=== PATIENT | female | born 1980 | race African-American/Black ===

== ENCOUNTER 2016-06-12 19:47 | Emergency (ER) | payer OTHER ==
[~2016-06-12] VITALS: Ht 167.6 cm; Wt 86.6 kg
[~2016-06-12 19:47] MED LIST: ACET-704 PO; ALBU25PO2 MC; AMIT75TA PO; ATOR20TA58 PO; AZIT250T6; AZIT250T6 PO; CYCL10TA2 PO; GLIP10TA13 PO; HYDR-2666; HYDR-2762 PO; LEVO137T3 PO; LISI-338 PO; LISI1TAB3 PO; LORA10TA68 PO; METF500T4 PO; NAPR500T PO; PRED20TA PO; PRED50TA; PREG25CA PO; PROAIR HFA8.5 GM INH; PROM5SYR2 PO; PROVENTIL HFA6.7 GM IH; SIMV20TA3 PO; TRAM50TA; [UNRECOGNIZED DRUG - OTHER]
[2016-06-12 20:30] VITALS: BP 151/84
[2016-06-12] MEDS ORDERED: DIPHENHYDRAMINE HCL 25 MG CAPSULE PO ONE (20:30)
[2016-06-12] MEDS ORDERED: PRED50TA PO (20:42)
[2016-06-12] MEDS ORDERED: PROAIR HFA8.5 GM INH (20:42)
--- NOTE | 2016-06-12 20:42 | PHYS DOC ---
Past Medical History Past Medical History: Asthma, Bronchitis, Diabetes-Type II, High Cholesterol, Hypertension, Hypothyroid, Other Additional Past Medical Histor: chronic back pain, sciatica, neuropathy, drug seeking behavior Past Surgical History: Cholecystectomy, Tonsillectomy, Tubal ligation, Other Additional Past Surgical Histo: ear tubes, removal of sweat glands, mole biopsy , neuropathy, ELBOW SX Alcohol Use: Occasionally Drug Use: None Adult General Chief Complaint Chief Complaint: SHORTNESS OF BREATH HPI HPI Patient is a 36 year old female who presents with 3 days of rhinorrhea, nasal congestion, sore throat, dry cough. She also notes 1 day of sternal chest pain with cough and lateral bilateral back pain with cough. She has no resting pain. She states she has general fatigue. She has mild dyspnea. She also has myalgia and chills. She has no measured fever. She denies nausea or vomiting, abdominal pain, diarrhea, dysuria, vaginal bleeding or discharge, leg pain or swelling, hemoptysis. She is taking Tylenol and ibuprofen without complete relief of her symptoms. Review of Systems Review of Systems Constitutional: Denies measured fever [] Eyes: Denies change in visual acuity, redness, or eye pain [] HENT: Has nasal congestion and sore throat [] Respiratory: Has cough and shortness of breath [] Cardiovascular: No additional information not addressed in HPI [] GI: Denies abdominal pain, nausea, vomiting, bloody stools or diarrhea [] : Denies dysuria or hematuria [] Musculoskeletal: Denies joint pain [] Integument: Denies rash or skin lesions [] Neurologic: Denies headache, focal weakness or sensory changes [] Endocrine: Denies polyuria or polydipsia [] Current Medications Current Medications Current Medications Medications (Trade) Dose Ordered Sig/Dwayne Start Time Stop Time Status Last Admin Dose Admin Diphenhydramine HCl (Benadryl) 25 mg 1X ONCE 06/12/16 20:30 06/12/16 20:34 DC 06/12/16 20:48 25 MG Allergies Allergies Allergies Coded Allergies Type Severity Reaction Last Updated Verified Cephalexin Monohydrate Allergy Intermediate 10/17/15 Yes latex Allergy Intermediate 10/17/15 Yes Physical Exam Physical Exam Constitutional: Well developed, well nourished, no acute distress, non-toxic appearance. [] HENT: Normocephalic, atraumatic, bilateral TMs with clear effusion, oropharynx moist, no oral exudates, nose with bilateral hyperemia. [] Eyes: PERRLA, EOMI, conjunctiva normal, no discharge. [] Neck: Normal range of motion, no tenderness, supple, no stridor. [] Cardiovascular:Heart rate regular rhythm [] Lungs & Thorax: Bilateral breath sounds clear to auscultation. Slightly hoarse voice. Mild tenderness to sternal and lateral ribs reproducing pain symptoms, no palpable or visual abnormality of chest wall. [] Abdomen: Bowel sounds normal, soft, no tenderness. [] Skin: Warm, dry, no erythema, no rash. [] Back: No tenderness, no CVA tenderness. [] Extremities: No tenderness, ROM intact, no edema, no palpable cord. [] Neurologic: Alert and oriented X 3, normal motor function, normal sensory function, no focal deficits noted. [] Psychologic: Affect normal, judgement normal, mood normal. [] Current Patient Data Vital Signs Vital Signs Date Time Temp Pulse Resp B/P Pulse Ox O2 Delivery O2 Flow Rate FiO2 06/12/16 20:30 84 151/84 98 Room Air 06/12/16 20:00 99.0 22 99.0 Course & Med Decision Making Course & Med Decision Making She has symptoms of a viral syndrome. Discussed multiple avenues of over-the- counter remedies to assist with symptoms. She requests a dose of Benadryl prior to departure to help her sleep tonight. Return precautions given. She understands and agrees with plan. Dragon Disclaimer Dragon Disclaimer This electronic medical record was generated, in whole or in part, using a voice recognition dictation system. Departure Departure Impression: Primary Impression: Asthma exacerbation Disposition: 01 HOME, SELF-CARE Condition: STABLE Referrals: JASON VARGAS MD (PCP) Patient Instructions: Upper Respiratory Infection, Adult, [id number] Additional Instructions: Take prednisone as prescribed. Use albuterol inhaler as needed for cough. Follow -up with your primary care doctor. Return for any concerns. Scripts Prednisone 50 Mg Tablet1 Tab PO DAILY #5 TAB Prov:Carla SUAREZ MD 06/12/16 Albuterol Sulfate (Proair Hfa Inhaler)8.5 Gm Hfa.aer.ad2 Puff INH Q4HRS PRN SHORTNESS OF BREATH #1 INHALER Prov:Carla SUAREZ MD 06/12/16 Carla SUAREZ MD Jun 12, 2016 20:42
== END 2016-06-12 20:51 | disposition home or self-care (01) ==
LOC: ER 19:47
DX: J45.901 Unspecified asthma with (acute) exacerbation (principal); E03.9 Hypothyroidism, unspecified; E78.00 Pure hypercholesterolemia, unspecified; E11.40 Type 2 diabetes mellitus with diabetic neuropathy, unspecified; I10 Essential (primary) hypertension; G89.29 Other chronic pain; R07.2 Precordial pain; Z76.5 Malingerer [conscious simulation]; Z90.49 Acquired absence of other specified parts of digestive tract; Z98.51 Tubal ligation status; Z90.89 Acquired absence of other organs; Z88.1 Allergy status to other antibiotic agents; Z91.040 Latex allergy status
CPT/HCPCS: 99283; Q0163

== ENCOUNTER 2016-06-21 07:02 | Emergency (ER) | payer OTHER ==
[~2016-06-21] VITALS: Ht 167.6 cm; Wt 86.6 kg
[~2016-06-21 07:02] MED LIST changes: +PRED50TA PO
[2016-06-21 07:16] VITALS: BP 152/88
[2016-06-21] MEDS ORDERED: LIDOCAINE 1% / SOD BICARB 8.4% 20 ML VIAL. IJ ONE (07:30)
--- NOTE | 2016-06-21 07:34 | PHYS DOC ---
Past Medical History Past Medical History: Asthma, Bronchitis, Diabetes-Type II, High Cholesterol, Hypertension, Hypothyroid, Other Additional Past Medical Histor: chronic back pain, sciatica, neuropathy, drug seeking behavior Past Surgical History: Cholecystectomy, Tonsillectomy, Tubal ligation, Other Additional Past Surgical Histo: ear tubes, removal of sweat glands, mole biopsy , neuropathy, ELBOW SX Additional Information: nonsmoker Alcohol Use: Occasionally Drug Use: None Adult General Chief Complaint Chief Complaint: WOUND CHECK HPI HPI Patient is a 36 year old diabetic female who presents with wound dehiscence of right axillary wound. She had a cyst removal performed at [facility] on 05/27/16. She had the sutures removed on 06/17/16. The wound reopened this morning while she was in the shower. She denies any other complications with the wound. Her PCP is Dr. Arambula. Review of Systems Review of Systems Constitutional: Denies fever or chills. [] Integument: Denies rash or skin lesions. Reports right axillary wound dehiscence. Neurologic: Denies focal weakness or sensory changes. [] Current Medications Current Medications Current Medications Medications (Trade) Dose Ordered Sig/Dwayne Start Time Stop Time Status Last Admin Dose Admin Lidocaine/Sodium Bicarbonate (Buffered Lidocaine 1%) 20 ml 1X ONCE 06/21/16 07:30 06/21/16 07:31 DC 06/21/16 07:35 20 ML Allergies Allergies Allergies Coded Allergies Type Severity Reaction Last Updated Verified Cephalexin Monohydrate Allergy Intermediate 10/17/15 Yes latex Allergy Intermediate 10/17/15 Yes Physical Exam Physical Exam Constitutional: Well developed, well nourished, no acute distress, non-toxic appearance. [] HENT: Normocephalic, atraumatic, oropharynx moist. [] Eyes: PERRLA, EOMI, conjunctiva normal, no discharge. [] Skin: Warm, dry, no erythema, no rash. There is a 2cm surgical incision in the fold of the right axilla that has dehisced. There is no surrounding erythema or induration. There is no drainage from the wound. The wound reveals good tissue granulation. Extremities: No tenderness, ROM intact, no edema. Distal pulses equal bilaterally. [] Neurologic: Alert and oriented X 3, normal motor function, normal sensory function, no focal deficits noted. [] Psychologic: Affect normal, judgement normal, mood normal. [] Current Patient Data Vital Signs Vital Signs Date Time Temp Pulse Resp B/P Pulse Ox O2 Delivery O2 Flow Rate FiO2 06/21/16 07:16 98.1 91 18 152/88 97 Room Air 98.1 EKG EKG [] Radiology/Procedures Radiology/Procedures [] Course & Med Decision Making Course & Med Decision Making Pertinent Labs and Imaging studies reviewed. (See chart for details) The patient presents with right axillary surgical wound dehiscence this morning. On exam, there are no signs of infection. Dr. Puga with general surgery was consulted regarding management of the wound. He states that it would be reasonable to close the wound with a few sutures with loose approximation. The wound was closed loosely. She is instructed to follow up with her surgeon at [facility] in 1-2 days. Return precautions were discussed. She verbalizes understanding and agrees with plan. Patient presents with a 2 cm surgical wound dehiscence to the right axilla. The wound was anesthetized with 1% buffered lidocaine. The wound was cleaned using chlorhexidine scrub and copiously irrigated using 250 cc normal saline. Wound edges were loosely approximated using 2 simple interrupted sutures using 4-0 Nylon. The patient tolerated the procedure well and bleeding was controlled. A sterile dressing was applied. Dragon Disclaimer Dragon Disclaimer This electronic medical record was generated, in whole or in part, using a voice recognition dictation system. Departure Departure Impression: Primary Impression: Dehiscence of closure of skin Disposition: 01 HOME, SELF-CARE Condition: STABLE Referrals: JASON ARAMBULA MD (PCP) Patient Instructions: Wound Dehiscence, [id number] Additional Instructions: Your wound was closed loosely with sutures to hold the edges together to promote continued wound healing. Please keep the wound clean and dry. Use soap and water only to clean the wound. Do not use alcohol or peroxide, as these can prolong the wound healing process. Please call your surgeon today to tell them that you were seen here and to schedule a follow up appointment. Return to the emergency department if you have increased pain, redness, swelling , yellow/green drainage from the wound, or other new or concerning symptoms. Problem Qualifiers Primary Impression: Dehiscence of closure of skin Encounter type: initial encounter Qualified Code: T81.31XA - Disruption of external operation (surgical) wound, not elsewhere classified, initial encounter EDIL MARIN Jun 21, 2016 07:34
== END 2016-06-21 08:03 | disposition home or self-care (01) ==
LOC: ER 07:02
DX: T81.31XA Disruption of external operation (surgical) wound, not elsewhere classified, initial encounter (principal); J45.909 Unspecified asthma, uncomplicated; E78.00 Pure hypercholesterolemia, unspecified; I10 Essential (primary) hypertension; E03.9 Hypothyroidism, unspecified; M54.30 Sciatica, unspecified side; E11.42 Type 2 diabetes mellitus with diabetic polyneuropathy; G62.9 Polyneuropathy, unspecified; Z76.5 Malingerer [conscious simulation]; Z90.89 Acquired absence of other organs; Z90.710 Acquired absence of both cervix and uterus; Z98.51 Tubal ligation status; Z88.1 Allergy status to other antibiotic agents; Z91.040 Latex allergy status
CPT/HCPCS: 12001; 99283-25

== ENCOUNTER 2016-07-22 11:07 | Day surgery (SDC) | payer OTHER ==
[~2016-07-22] VITALS: Ht 167.6 cm; Wt 90.7 kg
[~2016-07-22 11:07] MED LIST changes: +ASPI325T4 PO; +CETI10CA PO; +CLINDAMYCIN 600MG PREMIX 50 ML IV PRN; +FENTANYL PF 100 MCG/2 ML VIAL. IV PRN; +GABA-585 PO; +GABA300C8 PO; +INSU100I27; +IV RINGERS,LACTATED 1000ML 1,000 ML IV SCH; +LIDOCAINE 1% 1 ML SYRINGE. ID PRN; +LOSA100T6 PO; +ONDANSETRON PF 4 MG/2 ML VIAL. IV PRN; +PROCHLORPERAZINE 10 MG/2 ML VIAL. IV PRN; +SITA100T PO
[2016-07-22 11:36] LABS: NEG OBC UR NEG; POS OBC UR POS
[2016-07-22 11:50] LABS: BARBITURATES NEG (NEG); BENZODIAZEPINES NEG (NEG); CANNABINOIDS NEG (NEG); COCAINE NEG (NEG); METHADONE NEG (NEG); OPIATES POS (NEG)
[2016-07-22 11:54] LABS: ETHANOL, URINE NEG (NEG)
[2016-07-22 11:55] LABS: PHENCYCLIDINE POS (NEG)
[2016-07-22] MEDS ORDERED: LIDOCAINE 2% 100 MG/5 ML DISP.SYRIN. ONE (12:06)
[2016-07-22] MEDS ORDERED: FAMOTIDINE 20 MG/2 ML VIAL ONE (12:06)
[2016-07-22] MEDS ORDERED: ONDANSETRON PF 4 MG/2 ML VIAL. ONE (12:06)
[2016-07-22] MEDS ORDERED: PROPOFOL 20 ML IV ONE (12:06)
[2016-07-22] MEDS ORDERED: DEXAMETHASONE SOD PHOS 20 MG/5 ML VIAL. ONE (12:06)
[2016-07-22] MEDS ORDERED: FENTANYL PF 100 MCG/2 ML VIAL. ONE ×2 (12:07→13:32)
[2016-07-22] MEDS ORDERED: MIDAZOLAM HCL 2 MG/2 ML VIAL. ONE (12:07)
[2016-07-22] MEDS ORDERED: ROCURONIUM 50 MG/5 ML VIAL. ONE (12:07)
[2016-07-22] MEDS ORDERED: BUPIVACAINE-EPI 0.25%-1:200000 MPF 30 ML VIAL. ONE (12:13)
[2016-07-22 12:27] LABS: BASO # 0.1 x10^3/uL (0.0-0.2); BASO % 1 % (0-3); EOS % 1 % (0-3); HEMATOCRIT 40.2 % (36.0-47.0); HEMOGLOBIN 12.7 g/dL (12.0-15.5); LYMPH # 2.4 x10^3/uL (1.0-4.8); LYMPH % 20 % (24-48); MEAN CORPUSCULAR HEMOGLOBIN 27 pg (25-35); MEAN CORPUSCULAR HGB CONC 32 g/dL (31-37); MEAN CORPUSCULAR VOLUME 85 fL (79-100); MONO % 4 % (0-9); NEUT % 74 % (31-73); PLATELET COUNT 236 x10^3/uL (140-400); RED BLOOD COUNT 4.73 x10^6/uL (3.50-5.40); RED CELL DISTRIBUTION WIDTH 12.9 % (11.5-14.5); WHITE BLOOD COUNT 12.1 x10^3/uL (4.0-11.0)
[2016-07-22 12:31] LABS: CALCIUM 9.8 mg/dL (8.5-10.1); CREATININE 0.8 mg/dL (0.6-1.0); GFR 99.4; POTASSIUM 3.8 mmol/L (3.5-5.1)
[2016-07-22] MEDS ORDERED: GLYCOPYRROLATE 1 MG/5 ML VIAL. ONE (13:40)
[2016-07-22] MEDS ORDERED: NEOSTIGMINE METHYLSULFATE 5 MG/5 ML SYRINGE. ONE (13:40)
[2016-07-22] MEDS ORDERED: SEVOFLURANE 61 TO 120 MINUTES. IH ONE (13:51)
--- NOTE | 2016-07-22 14:03 | PDOC4 ---
Operative Note Operative Note Date of Procedure: 07/22/2016 Pre-Op Diagnosis: closed right ankle lateral malleolus fracturefracture Post-Op Diagnosis: same Procedure: Open treatment with internal fixation lateral malleolus fracture Anesthesia Type: General Surgeon: Siena Liu MD Mixed Crop Farmer: Valery Zamora PA-C EBL: 25 mL Specimens Obtained: none Drains: none Complications: none INDICATIONS FOR PROCEDURE: The patient is a 36 year-old with an ankle fracture. The patient and I discussed the risks and benefits of operative treatment. Surgical fixation likely will give a better long-term outcome. We talked about the risks of the operative fixation such as the risks of bleeding, infection, blood clots, need for hardware removal, stiffness or other potential surgical or anesthetic complications. All of the patient's questions about surgery were answered and they desired to proceed. Written consent was obtained. PROCEDURE IN DETAIL: The patient was identified in the preoperative holding area. The correct ankle was marked by the surgeon. The patient was taken to the operating room, where a general anesthetic was used. Preoperative antibiotics were given intravenously. A timeout procedure was performed. Tourniquet was used on the upper thigh. The limb was prepped sterilely with ChloraPrep solution and sterile drapes were applied with a sterile glove over the toes and heel. An Esmarch bandage was used to exsanguinate the limb and the tourniquet was inflated to 350 mmHg. The direct lateral approach to the distal fibula was used. Sharp dissection was used and Bovie electrocautery was used only as needed for hemostasis. The fracture was identified and exposed. The fracture was gapped open with some traction and with a [place] elevator, and fracture hematoma was cleared with curettes, rongeurs and irrigation. I then had my certified teacher assistant apply longitudinal traction and internal rotation to help reduce the fracture, and a lobster claw bone clamp was used to now reduce the fracture. An interfragmentary lag screw was placed using a threaded hole and a gliding hole, across the fracture site to stabilize it, so that the bone clamp could be removed. I then applied a seven hole plate laterally. I contoured the very tip of the plate to fit the tip of the distal fibula. I applied cortical screws proximally and cancellous screws distally for rigid fixation across the fracture site to stabilize it. Satisfactory reduction and fixation was obtained. I now used the image intensifier to confirm the reduction and fixation. I now stressed the syndesmosis and the medial clear space did not open. This was nicely stable and reduced. The tourniquet was released. Electrocautery was used for hemostasis. Irrigation was used and the incision was closed in layers with 2-0 Vicryl and richy. Local anesthetic with epinephrine was injected into the skin edges. Xeroform and a sterile dressing and a splint were applied. There were no apparent complications. SIENA LIU MD Jul 22, 2016 14:03
[2016-07-22] MEDS ORDERED: HYDR-963 PO ×2 (14:12→14:15)
[2016-07-22] MEDS: FENTANYL PF 100 MCG/2 ML VIAL. IV PRN ×4 (14:23→15:06)
[2016-07-22] MEDS ORDERED: KETOROLAC 30 MG/ML SYRINGE FOR OR. INJ ONE (15:15)
[2016-07-22] MEDS: MORPHINE SULFATE 2 MG/ML DISP.SYRIN. IV PRN ×2 (15:21→15:38)
[2016-07-22] MEDS ORDERED: KETOROLAC TROMETHAMINE 30 MG/ML SYRINGE. ONE (15:23)
[2016-07-22] MEDS: HYDROMORPHONE 2 MG/ML VIAL. IV PRN ×4 (15:43→16:20)
[2016-07-22] MEDS ORDERED: HYDROCODONE/APAP 10/325 TABLET. PO ONE (16:30)
[2016-07-22 16:55] VITALS: BP 121/75
== END 2016-07-22 17:10 | disposition home or self-care (01) ==
LOC: SURG 11:07
PROVIDERS: ATTEND Orthopaedic Surgery
DX: S82.61XA Displaced fracture of lateral malleolus of right fibula, initial encounter for closed fracture (principal); I10 Essential (primary) hypertension; E78.5 Hyperlipidemia, unspecified; E03.9 Hypothyroidism, unspecified; E78.00 Pure hypercholesterolemia, unspecified; F41.9 Anxiety disorder, unspecified; J45.909 Unspecified asthma, uncomplicated; E11.9 Type 2 diabetes mellitus without complications; X58.XXXA Exposure to other specified factors, initial encounter; Y93.9 Activity, unspecified; Y92.9 Unspecified place or not applicable; Z90.49 Acquired absence of other specified parts of digestive tract; Z98.890 Other specified postprocedural states
CPT/HCPCS: 27792; 36415; 80048; 81025; 85027; A4215; C1713; G0481; J1100; J1170; J1885; J2250; J2270; J2405; J2704; J2710; J3010; J3490; J7120; S0028

== ENCOUNTER 2016-09-05 08:47 | Emergency (ER) | payer OTHER ==
[~2016-09-05] VITALS: Ht 170.2 cm; Wt 89.8 kg
[~2016-09-05 08:47] MED LIST changes: -CLINDAMYCIN 600MG PREMIX 50 ML IV PRN; -FENTANYL PF 100 MCG/2 ML VIAL. IV PRN; +HYDR-963 PO; -IV RINGERS,LACTATED 1000ML 1,000 ML IV SCH; -LIDOCAINE 1% 1 ML SYRINGE. ID PRN; -ONDANSETRON PF 4 MG/2 ML VIAL. IV PRN; -PROCHLORPERAZINE 10 MG/2 ML VIAL. IV PRN
--- NOTE | 2016-09-05 09:15 | PHYS DOC ---
Past Medical History Past Medical History: Asthma, Bronchitis, Diabetes-Type II, High Cholesterol, Hypertension, Hypothyroid, Sciatica, Other Additional Past Medical Histor: chronic back pain, neuropathy Past Surgical History: Cholecystectomy, Tonsillectomy, Tubal ligation, Other Additional Past Surgical Histo: ear tubes, removal of sweat glands, ELBOW SX, left ankle ORIF Alcohol Use: None Drug Use: Marijuana Adult General Chief Complaint Chief Complaint: WEAKNESS/GENERALIZED HPI HPI Patient is a 36 year old female who presents with male prosthetic makeup designer for abnormal jerky movements of her face and limbs today. She notes this starting this morning. She was able to eat breakfast and take her morning meds. She denies headache, vision changes, dizziness, numbness, tingling, weakness, n/v, f/c, diarrhea, chest pain, dyspnea, cough, abd pain, dysuria. Review of Systems Review of Systems Constitutional: Denies fever or chills [] Eyes: Denies change in visual acuity, redness, or eye pain [] HENT: Denies nasal congestion or sore throat [] Respiratory: Denies cough or shortness of breath [] Cardiovascular: No additional information not addressed in HPI [] GI: Denies abdominal pain, nausea, vomiting, bloody stools or diarrhea [] : Denies dysuria or hematuria [] Musculoskeletal: Denies back pain or joint pain [] Integument: Denies rash or skin lesions [] Neurologic: Denies headache, focal weakness or sensory changes [] Endocrine: Denies polyuria or polydipsia [] Current Medications Current Medications Current Medications Medications (Trade) Dose Ordered Sig/Dwayne Start Time Stop Time Status Last Admin Dose Admin Sodium Chloride (Iv Sodium Chloride 0.9% 1000ml Bag) 1,000 ml @ 1,000 mls/hr Q1H 09/05/16 09:30 09/05/16 10:29 09/05/16 09:35 1,000 MLS/HR Allergies Allergies Allergies Coded Allergies Type Severity Reaction Last Updated Verified Cephalexin Monohydrate Allergy Intermediate 07/22/16 Yes acetaminophen Allergy Intermediate 07/22/16 No latex Allergy Intermediate 07/22/16 Yes oxycodone Allergy Intermediate 07/22/16 No Physical Exam Physical Exam Constitutional: Well developed, well nourished, no acute distress, non-toxic appearance. [] HENT: Normocephalic, atraumatic, bilateral external ears normal, oropharynx moist, no oral exudates, nose normal. [] Eyes: PERRLA, EOMI, conjunctiva normal, no discharge. [] Neck: Normal range of motion, supple. [] Cardiovascular:Heart rate regular rhythm [] Lungs & Thorax: Bilateral breath sounds clear to auscultation [] Abdomen: Bowel sounds normal, soft, no tenderness. [] Skin: Warm, dry, no erythema, no rash. [] Back: No tenderness, no CVA tenderness. [] Extremities: No tenderness, ROM intact, no edema. [] Neurologic: Alert and oriented X 3, normal motor function, normal sensory function, no focal deficits noted, cranial nerves II through XII intact. Intermittent jerky movements of various parts of the body while maintaining normal mentation. These have appeared to stop while she is not being directly observed for patient care [] Psychologic: Affect normal, judgement normal, mood normal. [] Current Patient Data Vital Signs Vital Signs Date Time Temp Pulse Resp B/P Pulse Ox O2 Delivery O2 Flow Rate FiO2 09/05/16 08:51 98.6 104 18 133/90 96 Room Air 98.6 Lab Values Laboratory Tests Test 09/05/16 09:20 09/05/16 09:22 Urine Collection Type Unknown Urine Color Yellow Urine Clarity Turbid Urine pH 6.5 Urine Specific University <=1.005 Urine Protein Negativemg/dL (NEG-TRACE) Urine Glucose (UA) Negativemg/dL (NEG) Urine Ketones (Stick) Negativemg/dL (NEG) Urine Blood Large (NEG) Urine Nitrite Negative (NEG) Urine Bilirubin Negative (NEG) Urine Urobilinogen Dipstick 0.2mg/dL (0.2 mg/dL) Urine Leukocyte Esterase Trace (NEG) Urine RBC 0/HPF (0-2) Urine WBC Occ/HPF (0-4) Urine Squamous Epithelial Cells Few/LPF Urine Amorphous Sediment Present/HPF Urine Bacteria 0/HPF (0-FEW) Urine Opiates Screen Pos (NEG) Urine Methadone Screen Neg (NEG) Urine Barbiturates Neg (NEG) Urine Phencyclidine Screen Pos (NEG) Urine Amphetamine/Methamphetamine Neg (NEG) Urine Benzodiazepines Screen Neg (NEG) Urine Cocaine Screen Pos (NEG) Urine Cannabinoids Screen Pos (NEG) Urine Ethyl Alcohol Neg (NEG) Sodium Level 142mmol/L (136-145) Potassium Level 3.6mmol/L (3.5-5.1) Chloride Level 102mmol/L (98-107) Carbon Dioxide Level 25mmol/L (21-32) Anion Gap 15 (6-14) H Blood Urea Nitrogen 31mg/dL (7-20) H Creatinine 1.0mg/dL (0.6-1.0) Estimated GFR (Cockcroft-Gault) 76.8 Glucose Level 257mg/dL (70-99) H Calcium Level 10.0mg/dL (8.5-10.1) Laboratory Tests 09/05/16 09:22 Course & Med Decision Making Course & Med Decision Making Pertinent Labs and Imaging studies reviewed. (See chart for details) UDS notable for polysubstance use. Laboratory evaluation otherwise unremarkable. Return precautions given. She understands and agrees with plan. Dragon Disclaimer Dragon Disclaimer This electronic medical record was generated, in whole or in part, using a voice recognition dictation system. Departure Departure Impression: Primary Impression: Muscle spasm Additional Impression: Polysubstance abuse Disposition: 01 HOME, SELF-CARE Condition: STABLE Referrals: JASON VARGAS MD (PCP) Patient Instructions: Alcohol and Drug Addiction, Finding Treatment Additional Instructions: You tested positive for opiates, PCP, cocaine, and marijuana. Stop using drugs. Follow up with your primary care doctor. Return for any concerns. Problem Qualifiers Carla SUAREZ MD Sep 05, 2016 09:15
[2016-09-05] MEDS ORDERED: IV NORMAL SALINE 1000ML BAG 1,000 ML IV SCH (09:30)
[2016-09-05 09:33] LABS: BILIRUBIN,URINE NEGATIVE (NEG); GLUCOSE,URINE NEGATIVE (NEG); NITRITE,URINE NEGATIVE (NEG); PH,URINE 6.5; PROTEIN,URINE NEGATIVE (NEG-TRACE); UROBILINOGEN,URINE 0.2 mg/dL (0.2 mg/dL)
[2016-09-05 09:36] LABS: BARBITURATES NEG (NEG); BENZODIAZEPINES NEG (NEG); CANNABINOIDS POS (NEG); COCAINE POS (NEG); METHADONE NEG (NEG); OPIATES POS (NEG); PHENCYCLIDINE POS (NEG)
[2016-09-05 09:37] LABS: ETHANOL, URINE NEG (NEG)
[2016-09-05 09:56] VITALS: BP 131/77
[2016-09-05 10:00] LABS: GFR 76.8; POTASSIUM 3.6 mmol/L (3.5-5.1)
[2016-09-05 10:07] LABS: BACTERIA,URINE 0 /HPF (0-FEW); RBC,URINE 0 /HPF (0-2); SQUAMOUS EPITHELIAL CELL,UR FEW /LPF; WBC,URINE OCC /HPF (0-4)
== END 2016-09-05 10:37 | disposition home or self-care (01) ==
LOC: ER 08:47
DX: M62.838 Other muscle spasm (principal); F19.10 Other psychoactive substance abuse, uncomplicated; J45.909 Unspecified asthma, uncomplicated; I10 Essential (primary) hypertension; E11.40 Type 2 diabetes mellitus with diabetic neuropathy, unspecified; E78.00 Pure hypercholesterolemia, unspecified; E03.9 Hypothyroidism, unspecified; G89.29 Other chronic pain; Z98.51 Tubal ligation status; Z90.49 Acquired absence of other specified parts of digestive tract; Z90.89 Acquired absence of other organs; F12.10 Cannabis abuse, uncomplicated; Z88.5 Allergy status to narcotic agent; Z88.6 Allergy status to analgesic agent; Z88.1 Allergy status to other antibiotic agents; Z91.040 Latex allergy status
CPT/HCPCS: 36415; 80048; 81001; 82947; 87086; 96360; 99284; G0481; J7030

== ENCOUNTER 2016-12-27 00:34 | Emergency (ER) | payer OTHER ==
[~2016-12-27] VITALS: Ht 167.6 cm; Wt 83.0 kg
[~2016-12-27 00:34] MED LIST changes: -ASPI325T4 PO; +ASPI325T8 PO; -HYDR-2666; +HYDR-2758
[2016-12-27 02:41] LABS: BILIRUBIN,URINE NEGATIVE (NEG); GLUCOSE,URINE >=1000 mg/dL (NEG); NITRITE,URINE NEGATIVE (NEG); PROTEIN,URINE NEGATIVE (NEG-TRACE); UROBILINOGEN,URINE 0.2 mg/dL (0.2 mg/dL)
[2016-12-27 02:49] LABS: BACTERIA,URINE 0 /HPF (0-FEW); RBC,URINE 0 /HPF (0-2); SQUAMOUS EPITHELIAL CELL,UR OCC /LPF; WBC,URINE OCC /HPF (0-4)
[2016-12-27 04:45] VITALS: BP 109/75
[2016-12-27] MEDS ORDERED: CYCLOBENZAPRINE 10 MG TABLET. PO ONE (04:45)
[2016-12-27] MEDS ORDERED: IBUPROFEN 800 MG TABLET. PO ONE (04:45)
[2016-12-27] MEDS ORDERED: NAPR250T2 PO (05:15)
[2016-12-27] MEDS ORDERED: CYCL10TA2 PO (05:15)
--- NOTE | 2016-12-27 07:44 | RAD ---
Indication pain and swelling associated with a fall several days earlier. AP oblique and lateral views of the left foot were obtained. Postoperative changes about the distal fibula are noted. There is generalized soft tissue swelling. No acute bony finding is apparent IMPRESSION: No acute bony finding
--- NOTE | 2016-12-27 07:46 | RAD ---
Indication pain and swelling associated with a fall several days earlier. AP and lateral views of the lumbar spine were obtained as well as a coned view targeted to the lumbosacral junction. Vertebral height alignment and disc spaces appear unremarkable. No acute bony finding is seen. There are no significant degenerative changes apparent on plain films. IMPRESSION: Normal plain films of the lumbar spine
--- NOTE | 2016-12-27 07:48 | RAD ---
Indication pain and swelling associated with a fall. AP oblique and lateral views of the left ankle were obtained. A plate and screws are noted associated with the distal fibula. No acute bony abnormality is seen. Some soft tissue swelling is noted IMPRESSION: No acute bony finding
--- NOTE | 2016-12-27 07:55 | ED.ADGEN ---
Past Medical History Past Medical History: Asthma, Bronchitis, Diabetes-Type II, High Cholesterol, Hypertension, Hypothyroid, Sciatica, Other Additional Past Medical Histor: chronic back pain, neuropathy Past Surgical History: Cholecystectomy, Tonsillectomy, Tubal ligation, Other Additional Past Surgical Histo: ear tubes, removal of sweat glands, ELBOW SX, left ankle ORIF Alcohol Use: None Drug Use: Marijuana Adult General Chief Complaint Chief Complaint: MECHANICAL FALL HPI HPI Patient is a 36 year old woman, history of type 2 diabetes mellitus, hypertension, asthma, anxiety, who presents to the emergency department with complaint of pain in her right buttock, and left ankle and foot after a fall several days ago. Patient states that she had hardware placed in her ankle after a fracture, and is recently finished physical therapy, states that she lost her balance and fell, twisting her ankle and landing on her buttocks several days ago. She states that she has not really taken any medication at home for pain, denies striking her head or her neck, is complaining of left- sided pain, her buttock and lower back, and pain in the left ankle. Patient is ambulating although with some discomfort upon arousing emergency department. Denies any other complaints. Review of Systems Review of Systems Constitutional: Denies fever or chills. [] Eyes: Denies change in visual acuity. [] HENT: Denies nasal congestion or sore throat. [] Respiratory: Denies cough or shortness of breath. [] Cardiovascular: Denies chest pain or edema. [] GI: Denies abdominal pain, nausea, vomiting, bloody stools or diarrhea. [] : Denies dysuria. [] Musculoskeletal: Low back pain, ankle and foot pain on the left side. Integument: Denies rash. [] Neurologic: Denies headache, focal weakness or sensory changes. [] Endocrine: Denies polyuria or polydipsia. [] Lymphatic: Denies swollen glands. [] Psychiatric: Denies depression or anxiety. [] Current Medications Current Medications Current Medications Medications (Trade) Dose Ordered Sig/Dwanye Start Time Stop Time Status Last Admin Dose Admin Cyclobenzaprine HCl (Flexeril) 10 mg 1X ONCE 12/27/16 04:45 12/27/16 04:46 DC 12/27/16 04:43 10 MG Ibuprofen (Motrin) 800 mg 1X ONCE 12/27/16 04:45 12/27/16 04:46 DC 12/27/16 04:43 800 MG Allergies Allergies Allergies Coded Allergies Type Severity Reaction Last Updated Verified Cephalexin Monohydrate Allergy Intermediate 07/22/16 Yes acetaminophen Allergy Intermediate 07/22/16 No latex Allergy Intermediate 07/22/16 Yes oxycodone Allergy Intermediate 07/22/16 No Physical Exam Physical Exam Constitutional: Well developed, well nourished, no acute distress, non-toxic appearance. [] HENT: Normocephalic, atraumatic, bilateral external ears normal, oropharynx moist, no oral exudates, nose normal. [] Eyes: PERRLA, EOMI, conjunctiva normal, no discharge. [] Neck: Normal range of motion, no tenderness, supple, no stridor. [] Cardiovascular:Heart rate regular rhythm, no murmur [] Lungs & Thorax: Bilateral breath sounds clear to auscultation [] Abdomen: Bowel sounds normal, soft, no tenderness, no masses, no pulsatile masses. [] Skin: Warm, dry, no erythema, no rash. [] Back: No tenderness, no CVA tenderness. [] Extremities: No tenderness, no cyanosis, no clubbing, ROM intact, no edema. [] Neurologic: Alert and oriented X 3, normal motor function, normal sensory function, no focal deficits noted. [] Psychologic: Affect normal, judgement normal, mood normal. [] Current Patient Data Vital Signs Vital Signs Date Time Temp Pulse Resp B/P (MAP) Pulse Ox O2 Delivery O2 Flow Rate FiO2 12/27/16 04:45 83 20 109/75 (86) 97 Room Air 12/27/16 01:40 97.7 97.7 Lab Values Laboratory Tests Test 12/27/16 01:41 12/27/16 02:24 12/27/16 02:34 POC Urine HCG, Qualitative Hcg negative (Negative) Hcg negative (Negative) Urine Collection Type Unknown Urine Color Yellow Urine Clarity Clear Urine pH 6.0 Urine Specific [place] 1.025 Urine Protein Negative mg/dL (NEG-TRACE) Urine Glucose (UA) >=1000 mg/dL (NEG) Urine Ketones (Stick) Negative mg/dL (NEG) Urine Blood Negative (NEG) Urine Nitrite Negative (NEG) Urine Bilirubin Negative (NEG) Urine Urobilinogen Dipstick 0.2 mg/dL (0.2 mg/dL) Urine Leukocyte Esterase Negative (NEG) Urine RBC 0 /HPF (0-2) Urine WBC Occ /HPF (0-4) Urine Squamous Epithelial Cells Occ /LPF Urine Bacteria 0 /HPF (0-FEW) EKG EKG Not indicated. [] Radiology/Procedures Radiology/Procedures Left ankle x-ray: Three-view: Patient with hardware in place lateral aspect of the tibia, no evidence of acute fracture, subluxation, soft tissue or other abnormality identified. As interpreted by me. Left foot x-ray: Three-view: Patient with hardware in place as stated, no evidence of acute fracture, subluxation, soft tissue or other abnormality identified. As interpreted by me. Lumbar film: Three-view: No fracture subluxation identified, no soft tissue or bony abnormalities, as interpreted by me. ] Course & Med Decision Making Course & Med Decision Making Pertinent Labs and Imaging studies reviewed. (See chart for details) Patient ambulating with some discomfort, noted to have swelling in the foot and ankle which she states she "isn't sure" if it is worse than usual, although she states she does temporally have swelling air. Due to patient's complaints, and history, imaging of the foot, ankle, and lumbar spine was obtained. No evidence of acute fracture or other acute abnormality was identified. I discussed this with patient, patient was given cyclobenzaprine, naproxen in the ED, also given a prescription for the same, instructed to use medications as directed, and with precautions. To follow up with her orthopedic surgeon if symptoms persist, and return to the ED if new or concerning symptoms develop. Patient discharged home with her family in stable condition with prescriptions and plan as above. Dragon Disclaimer Dragon Disclaimer This electronic medical record was generated, in whole or in part, using a voice recognition dictation system. Departure Impression: Primary Impression: Back pain with radiation Additional Impression: Musculoskeletal pain Disposition: HOME, SELF-CARE Condition: IMPROVED Scripts Naproxen (NAPROXEN) 250 Mg Tablet 250 MG PO BID, #10 Prov: EDIL HUTCHINSON DO 12/27/16 Cyclobenzaprine Hcl (CYCLOBENZAPRINE HCL) 10 Mg Tablet 10 MG PO TID Y for MUSCLE PAIN, #12 TAB Prov: EDIL HUTCHINSON DO 12/27/16 Problem Qualifiers EDIL HUTCHINSON DO Dec 27, 2016:54
== END 2016-12-27 05:56 | disposition home or self-care (01) ==
LOC: ER 00:34
DX: M54.5 Low back pain (principal); M79.1 Myalgia; R22.42 Localized swelling, mass and lump, left lower limb; M25.572 Pain in left ankle and joints of left foot; J45.909 Unspecified asthma, uncomplicated; E78.00 Pure hypercholesterolemia, unspecified; I10 Essential (primary) hypertension; E03.9 Hypothyroidism, unspecified; G89.29 Other chronic pain; E11.40 Type 2 diabetes mellitus with diabetic neuropathy, unspecified; F41.9 Anxiety disorder, unspecified; F12.10 Cannabis abuse, uncomplicated; Z88.1 Allergy status to other antibiotic agents; Z88.6 Allergy status to analgesic agent; Z88.5 Allergy status to narcotic agent; Z91.040 Latex allergy status; Z90.49 Acquired absence of other specified parts of digestive tract
CPT/HCPCS: 72100; 73610; 73630; 81001; 81025; 99285

== ENCOUNTER 2017-02-09 21:47 | Emergency (ER) | payer OTHER ==
[~2017-02-09] VITALS: Ht 167.6 cm; Wt 83.0 kg
[~2017-02-09 21:47] MED LIST changes: +NAPR250T2 PO
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
[2017-02-09] MEDS ORDERED: HYDR-971 PO (22:22)
[2017-02-09] MEDS ORDERED: DIPHTH,PERTUSS(ACELL),TET TOX 0.5 ML DISP.SYRIN. VAX IM ONE (22:30)
[2017-02-09] MEDS ORDERED: HYDROcodone/APAP 5/325MG 1 TAB TABLET PO ONE (23:30)
[2017-02-09 23:45] VITALS: BP 135/92
== END 2017-02-09 23:56 | disposition home or self-care (01) ==
LOC: ER 21:47
DX: T21.21XA Burn of second degree of chest wall, initial encounter (principal); T31.0 Burns involving less than 10% of body surface; E03.9 Hypothyroidism, unspecified; E11.9 Type 2 diabetes mellitus without complications; G89.29 Other chronic pain; I10 Essential (primary) hypertension; J45.909 Unspecified asthma, uncomplicated; E78.00 Pure hypercholesterolemia, unspecified; Z88.5 Allergy status to narcotic agent; Z88.0 Allergy status to penicillin; Z88.6 Allergy status to analgesic agent; Z88.1 Allergy status to other antibiotic agents; Z91.040 Latex allergy status; X12.XXXA Contact with other hot fluids, initial encounter; Y93.89 Activity, other specified; Y92.89 Other specified places as the place of occurrence of the external cause; Y99.8 Other external cause status
CPT/HCPCS: 16000; 90471; 90715; 99283-25; 99284-25

== ENCOUNTER 2017-04-18 07:14 | Day surgery (SDC) | payer OTHER ==
--- NOTE | 2017-04-17 12:20 | PDOC1 ---
History and Physical Date of Admission Date of Admission DATE: 04/18/17 Identification/Chief Complaint Chief Complaint left ankle pain Problems: Source Source: Chart review History of Present Illness History of Present Illness Michelle is a 37 year old female who had left lateral malleolus ORIF on . The fracture is healed and she now has pain due to the hardware. Past Medical History Cardiovascular: HTN, Hyperlipidemia Pulmonary: Asthma CENTRAL NERVOUS SYSTEM: Periperal neuropathy Musculoskeletal: Other (LEFT FOOT/ANKLE: Dorsiflexion to 15, plantarflexion to 20. Inversion to 10, eversion to 5. tenderness to palpation over the medial and lateral joint lines. tenderness to palpation over distal aspect of the plate. no tenderness to palpation over fracture site.) Endocrine: Diabetes, Hypothyroidism Past Surgical History Past Surgical History: Cholecystectomy, Tonsillectomy, Other (left ankle ORIF ) Family History Family History: No Significant Social History Smoke: Quit (2011) ALCOHOL: rare Drugs: None Current Medications Current Medications Active Scripts Active Cyclobenzaprine Hcl 10 Mg Tablet 10 Mg PO TID Reported Loratadine 10 Mg Tablet 1 Tab PO DAILY Levothyroxine Sodium 150 Mcg Tablet 1 Tab PO DAILY Levemir Flextouch (Insulin Detemir) 100 Unit/1 Ml Insuln.pen 33 BID Gabapentin 300 Mg Capsule 1,200 Mg PO TID Aspirin 325 Mg Tablet 1 Tab PO DAILY Januvia (Sitagliptin Phosphate) 100 Mg Tablet 1 Tab PO DAILY Losartan Potassium 100 Mg Tablet 100 Mg PO DAILY Atorvastatin Calcium 20 Mg Tablet 40 Mg PO HS Proventil Hfa Inhaler (Albuterol Sulfate) 6.7 Gm Hfa.aer.ad 2 Puff IH PRN Q4HRS PRN Glipizide 10 Mg Tablet 1 Tab PO BID Amitriptyline Hcl 75 Mg Tablet 75 Mg PO HS Allergies Allergies: Coded Allergies: Cephalexin Monohydrate (Verified Allergy, Intermediate, Itching, 04/14/17) itch acetaminophen (Verified Allergy, Intermediate, 04/14/17) latex (Verified Allergy, Intermediate, Itching, 04/14/17) Latex powder oxycodone (Verified Allergy, Intermediate, 04/14/17) Penicillins (Verified Allergy, Mild, Itching, 04/14/17) Physical Exam General: Alert, Oriented X3, Cooperative, No acute distress HEENT: Atraumatic, EOMI Lungs: Normal air movement Heart: RRR Abdomen: Soft Extremities: No clubbing, No cyanosis, Normal pulses, Other (LEFT FOOT/ANKLE: Dorsiflexion to 15, plantarflexion to 20. Inversion to 10, eversion to 5. tenderness to palpation over the medial and lateral joint lines. tenderness to palpation over distal aspect of the plate. no tenderness to palpation over fracture site.) Skin: No rashes, No breakdown, No significant lesion, Other (Well-healed surgical scar over lateral malleolus ) Neuro: Normal speech, Sensation intact Images Images IMAGING REPORT Left ankle three views, AP, lateral, and oblique Clinical information: Followup ORIF ankle fracture Comparison: 11/03/2016 Findings Bones: Lateral malleolus fracture appears anatomically reduced. The fracture line is no longer well visualized. Plate and screw fixation is seen in the fibula distally. Position is stable compared to prior x-rays, and preliminary healing as suspected. Joints: The ankle mortise is anatomically aligned. Soft tissue: Normal. Impression: Healing ankle fracture, lateral malleolus VTE Prophylaxis Ordered VTE Prophylaxis Devices: Yes VTE Pharmacological Prophylaxi: Yes Assessment/Plan Assessment/Plan Left ankle hardware pain s/p left ankle ORIF 07/22/16. Dr. Liu recommended left ankle hardware removal. Risks of surgery were discussed. All of her questions were answered and she desires to proceed. JONAS PATEL Apr 17, 2017 12:20
[~2017-04-18 07:14] MED LIST changes: +BUPIVACAINE-EPI 0.25%-1:200000 50 ML VIAL. ONE; +CLINDAMYCIN 600MG PREMIX 50 ML IV PRN; +HYDR-971 PO; +HYDROmorphone 2 MG/ML VIAL IV PRN; +IV RINGERS,LACTATED 1000ML 1,000 ML IV SCH; +LEVO150T5 PO; +LIDOCAINE 1% PF 2 ML VIAL. ID PRN; +LORA10TA3 PO; +MORPHINE SULFATE 4 MG/ML DISP.SYRIN. IV PRN; +NAPR-683 PO; -NAPR250T2 PO; +NAPR250T6 PO; -NAPR500T PO; +ONDANSETRON PF 4 MG/2 ML VIAL. IV PRN; +PROCHLORPERAZINE 10 MG/2 ML VIAL. IV PRN; +fentaNYL PF VIAL 100 MCG/2 ML VIAL IV PRN
[2017-04-18 07:34] LABS: NEG OBC UR NEG; POS OBC UR POS
[2017-04-18 07:38] LABS: BARBITURATES NEG (NEG); BENZODIAZEPINES NEG (NEG); CANNABINOIDS NEG (NEG); COCAINE NEG (NEG); METHADONE NEG (NEG); OPIATES POS (NEG); PHENCYCLIDINE POS (NEG)
[2017-04-18] MEDS ORDERED: FAMOTIDINE 20 MG/2 ML VIAL ONE (08:40)
[2017-04-18] MEDS ORDERED: fentaNYL PF VIAL 100 MCG/2 ML VIAL ONE (08:40)
[2017-04-18] MEDS ORDERED: ONDANSETRON PF 4 MG/2 ML VIAL. ONE (08:40)
[2017-04-18] MEDS ORDERED: LIDOCAINE 2% PF Vial for OR 5 ML VIAL. ONE (08:40)
[2017-04-18] MEDS ORDERED: MIDAZOLAM HCL/PF 2 MG/2 ML VIAL. ONE (08:40)
[2017-04-18] MEDS ORDERED: PROPOFOL 20 ML IV ONE (08:40)
[2017-04-18] MEDS ORDERED: DEXAMETHASONE SOD PHOS 20 MG/5 ML VIAL. ONE (08:40)
[2017-04-18] MEDS ORDERED: SEVOFLURANE 31 TO 60 MINUTES. IH ONE (09:40)
--- NOTE | 2017-04-18 09:47 | PDOC4 ---
Operative Note Operative Note Date of Procedure: 04/18/2017 Pre-Op Diagnosis: Mechanical complications retained hardware left ankle Post-Op Diagnosis: Mechanical complications retained hardware left ankle Procedure: Hardware removal left ankle Surgeon(s): Siena Liu MD Per Diem Rn: Valery Zamora PA-C Anesthesia: General EBL: 5 mL Specimens Obtained: none Complications: none Drains: none Tourniquet time: 6 minutes Indications for Procedure: The patient is a 37 year old with mechanical complications of retained hardware. The patient and I discussed the risks, benefits and alternatives of surgery. We discussed the potential risks of refracture, infection, blood clots, continued pain, or other potential surgical or anesthetic competitions. All of her questions about surgery were answered and she desired to proceed. Procedure in Detail: The patient was identified in the preoperative holding area. The correct left ankle was marked by me. The patient was taken to the operating room where general anesthetic was used. The patient was positioned supine on the operating table. A tourniquet was placed on the thigh. Preoperative antibiotics were given intravenously. A timeout procedure was performed. The limb was prepared in sterile fashion with Chloraprep and sterile drapes were applied. An Esmarch bandage was used to exsanguinate the limb and the tourniquet was inflated to 300 mmHg. The scar from prior surgery was used. A lateral incision was made over the plate and screws. Sharp dissection was used and Bovie electrocautery was used only as needed for hemostasis. The plate and all screws were identified, and removed with a screwdriver. Irregularities on the bone from the screw holes were freshened up with a rongeur. The tourniquet was released. Bovie electrocautery was used for hemostasis. Copious irrigation was used. The incision was closed with 3-0 Vicryl and richy by my tax assistant. 20 mLs of 0.5% Marcaine with epinephrine was injected into the skin edges. Xeroform and a sterile dressing were applied. Needle and sponge counts were correct. There were no apparent complications. SIENA LIU MD Apr 18, 2017 09:47
[2017-04-18] MEDS ORDERED: HYDR-2762 PO (10:26)
[2017-04-18] MEDS ORDERED: CALC-77 PO (10:28)
[2017-04-18] MEDS ORDERED: HYDROcodone/APAP 7.5/325MG 1 TAB TABLET PO ONE (10:30)
[2017-04-18 10:36] VITALS: BP 112/73
== END 2017-04-18 11:19 | disposition home or self-care (01) ==
LOC: SURG 07:14
PROVIDERS: ATTEND Orthopaedic Surgery
DX: T84.84XA Pain due to internal orthopedic prosthetic devices, implants and grafts, initial encounter (principal); E11.9 Type 2 diabetes mellitus without complications; E03.9 Hypothyroidism, unspecified; Z88.0 Allergy status to penicillin; Z88.8 Allergy status to other drugs, medicaments and biological substances; Z91.040 Latex allergy status; J45.909 Unspecified asthma, uncomplicated; I10 Essential (primary) hypertension; E78.00 Pure hypercholesterolemia, unspecified; Z79.4 Long term (current) use of insulin; Z88.6 Allergy status to analgesic agent; Z88.5 Allergy status to narcotic agent; X58.XXXA Exposure to other specified factors, initial encounter
CPT/HCPCS: 20680; 80307; 81025; 82962; J1100; J2250; J2405; J2704; J3010; J3490; S0028; G0479; J2001

== ENCOUNTER 2017-10-07 02:35 | Emergency (ER) | payer OTHER ==
[2017-10-07] MEDS: ACETAMINOPHEN 500 MG TABLET PO (05:13)
== END 2017-10-07 05:30 | disposition home or self-care (01) ==
LOC: ER 02:35
DX: E11.622 Type 2 diabetes mellitus with other skin ulcer (principal); L97.128 Non-pressure chronic ulcer of left thigh with other specified severity; E03.9 Hypothyroidism, unspecified; E78.00 Pure hypercholesterolemia, unspecified; J45.909 Unspecified asthma, uncomplicated; I10 Essential (primary) hypertension; F14.10 Cocaine abuse, uncomplicated; Z79.4 Long term (current) use of insulin; Z88.5 Allergy status to narcotic agent; Z88.0 Allergy status to penicillin; Z88.1 Allergy status to other antibiotic agents; Z91.040 Latex allergy status
CPT/HCPCS: 99283

== ENCOUNTER 2017-11-18 03:03 | Emergency (ER) | payer OTHER ==
[2017-11-18] MEDS: CYCLOBENZAPRINE 10 MG TABLET. PO (03:50)
[2017-11-18] MEDS: HYDROcodone/APAP 5/325MG 1 TAB TABLET PO (03:50)
== END 2017-11-18 04:25 | disposition home or self-care (01) ==
LOC: ER 03:03
DX: S30.0XXA Contusion of lower back and pelvis, initial encounter (principal); E78.00 Pure hypercholesterolemia, unspecified; E11.9 Type 2 diabetes mellitus without complications; E03.9 Hypothyroidism, unspecified; I10 Essential (primary) hypertension; Z88.0 Allergy status to penicillin; Z88.5 Allergy status to narcotic agent; Z88.1 Allergy status to other antibiotic agents; Z91.040 Latex allergy status; W01.198A Fall on same level from slipping, tripping and stumbling with subsequent striking against other object, initial encounter; Y99.0 Civilian activity done for income or pay; Y99.8 Other external cause status; Y92.69 Other specified industrial and construction area as the place of occurrence of the external cause
CPT/HCPCS: 99283

== ENCOUNTER 2018-01-13 20:44 | Emergency (ER) | payer OTHER ==
[2018-01-13 21:23] LABS: BILIRUBIN,URINE NEGATIVE (NEG); CLARITY,URINE CLEAR; COLOR,URINE YELLOW; GLUCOSE,URINE NEGATIVE (NEG); NITRITE,URINE NEGATIVE (NEG); PH,URINE 6.5; PROTEIN,URINE NEGATIVE (NEG-TRACE); UROBILINOGEN,URINE 0.2 mg/dL (0.2 mg/dL)
[2018-01-13 21:23] LABS: URINE HCG POC HCG NEGATIVE (Negative)
[2018-01-13] MEDS: KETOROLAC 60 MG/2 ML INJ. IM (21:25)
[2018-01-13] MEDS: HYDROcodone/APAP 5/325MG 1 TAB TABLET PO (21:26)
[2018-01-13 21:35] LABS: SQUAMOUS EPITHELIAL CELL,UR MOD /LPF
[2018-01-13 21:36] LABS: BACTERIA,URINE 0 /HPF (0-FEW); RBC,URINE 0 /HPF (0-2); WBC,URINE OCC /HPF (0-4)
[2018-01-13 21:37] LABS: BARBITURATES NEG (NEG); BENZODIAZEPINES NEG (NEG); CANNABINOIDS POS (NEG); COCAINE NEG (NEG); METHADONE NEG (NEG); OPIATES NEG (NEG); PHENCYCLIDINE POS (NEG)
[2018-01-13 21:38] LABS: AMPHETAMINE/METHAMPHETAMINE NEG (NEG); ETHANOL, URINE NEG (NEG)
== END 2018-01-13 21:59 | disposition home or self-care (01) ==
LOC: ER 21:59
DX: M54.5 Low back pain (principal); E11.9 Type 2 diabetes mellitus without complications; E78.00 Pure hypercholesterolemia, unspecified; I10 Essential (primary) hypertension; E03.9 Hypothyroidism, unspecified; J45.909 Unspecified asthma, uncomplicated; Z88.5 Allergy status to narcotic agent; Z88.0 Allergy status to penicillin; Z91.040 Latex allergy status
CPT/HCPCS: 80307; 81001; 81025; 96372; 99284; J1885

== ENCOUNTER 2018-01-18 00:30 | Emergency (ER) | payer OTHER ==
[~2018-01-18] VITALS: Ht 167.6 cm; Wt 80.7 kg
[~2018-01-18 00:30] MED LIST changes: -BUPIVACAINE-EPI 0.25%-1:200000 50 ML VIAL. ONE; +CALC-77 PO; -CLINDAMYCIN 600MG PREMIX 50 ML IV PRN; +DOXY100T9 PO; -HYDROmorphone 2 MG/ML VIAL IV PRN; -IV RINGERS,LACTATED 1000ML 1,000 ML IV SCH; -LIDOCAINE 1% PF 2 ML VIAL. ID PRN; -METF500T4 PO; +METF500T5 PO; -MORPHINE SULFATE 4 MG/ML DISP.SYRIN. IV PRN; +NAPR-514 PO; -ONDANSETRON PF 4 MG/2 ML VIAL. IV PRN; -PROCHLORPERAZINE 10 MG/2 ML VIAL. IV PRN; -fentaNYL PF VIAL 100 MCG/2 ML VIAL IV PRN
[2018-01-18 00:40] VITALS: BP 136/79
[2018-01-18] MEDS ORDERED: ACETAMINOPHEN 500 MG TABLET PO ONE (01:15)
--- NOTE | 2018-01-18 02:08 | PHYS DOC ---
Past Medical History Past Medical History: Diabetes-Type II, Hypertension, Hyperthyroid, Sciatica Additional Past Medical Histor: ESOPHAGEAL POLYPS, OVARIAN CYST, STOMACH ULCER Past Surgical History: Cholecystectomy, Tonsillectomy, Tubal ligation Additional Past Surgical Histo: LEFT ANKLE SX, BILAT ELBOW SX, ADDENOIDECTOMY, CYST REMOVAL BILAT ARMPITS Alcohol Use: Occasionally Drug Use: Marijuana Social History Narrative: DENIES CURRENT MARIJUANA USE, HAS USED IN PAST Adult General Chief Complaint Chief Complaint: TOE PROBLEM HPI HPI Patient is a 37 year old female with toe pain. She started earlier today pain is moderate nonradiating. Patient denies any suicidal ideation. Current Medications Current Medications Current Medications Medications (Trade) Dose Ordered Sig/Dwayne Start Time Stop Time Status Last Admin Dose Admin Acetaminophen (Tylenol) 1,000 mg 1X ONCE 01/18/18 01:15 01/18/18 01:16 DC 01/18/18 01:27 1,000 MG Allergies Allergies Allergies Coded Allergies Type Severity Reaction Last Updated Verified Cephalexin Monohydrate Allergy Intermediate Itching 04/14/17 Yes latex Allergy Intermediate Itching 04/14/17 Yes oxycodone Allergy Intermediate 04/17/17 Yes Penicillins Allergy Mild Itching 04/14/17 Yes amoxicillin Allergy Unknown 01/18/18 Yes Physical Exam Physical Exam Constitutional: Well developed, well nourished, no acute distress, non-toxic appearance. [] HENT: Normocephalic, atraumatic, bilateral external ears normal, oropharynx moist, no oral exudates, nose normal. [] Eyes: PERRLA, EOMI, conjunctiva normal, no discharge. [] Neck: Normal range of motion, no tenderness, supple, no stridor. [] Extremities: Left toe mild tenderness no swelling or trauma seen Neurologic: Alert and oriented X 3, normal motor function, normal sensory function, no focal deficits noted. [] Psychologic:blunted affect no si. Current Patient Data Vital Signs Vital Signs Date Time Temp Pulse Resp B/P (MAP) Pulse Ox O2 Delivery O2 Flow Rate FiO2 01/18/18 00:40 98.5 103 18 136/79 (98) 97 Room Air 98.5 EKG EKG [] Radiology/Procedures Radiology/Procedures [] Impressions: my read neg xray Course & Med Decision Making Course & Med Decision Making Pertinent Labs and Imaging studies reviewed. (See chart for details) []Toe contusion no signs of any trauma. I offered Tylenol patient requested something stronger. I did not think that this was appropriate she became frustrated. I did advise her to ice rest this toe contusion should heal without difficulty final read of x-ray is pending at this time. Dragon Disclaimer Dragon Disclaimer This electronic medical record was generated, in whole or in part, using a voice recognition dictation system. Departure Departure Impression: Primary Impression: Toe contusion Disposition: 01 HOME, SELF-CARE Condition: STABLE Patient Instructions: Frannie, [id number] DEYSI ALFARO MD Jan 18, 2018 02:08
--- NOTE | 2018-01-18 07:58 | RAD ---
Left great toe, 3 views, 01/18/2018: HISTORY: Toe pain No fracture or dislocation is identified. No significant arthritic change is evident. There is mild generalized subcutaneous edema. IMPRESSION: No significant bony abnormality is detected. Electronically signed by: José Miguel Richardson MD (01/18/2018 7:54 AM) [facility]
== END 2018-01-18 02:12 | disposition home or self-care (01) ==
LOC: ER 00:30
DX: S90.122A Contusion of left lesser toe(s) without damage to nail, initial encounter (principal); Z88.1 Allergy status to other antibiotic agents; Z88.0 Allergy status to penicillin; Z88.5 Allergy status to narcotic agent; Z91.040 Latex allergy status; E11.9 Type 2 diabetes mellitus without complications; I10 Essential (primary) hypertension; X58.XXXA Exposure to other specified factors, initial encounter; Y93.89 Activity, other specified; Y99.8 Other external cause status; Y92.89 Other specified places as the place of occurrence of the external cause
CPT/HCPCS: 73630; 99284

== ENCOUNTER 2018-02-21 23:00 | Emergency (ER) | payer OTHER ==
[~2018-02-21] VITALS: Ht 165.1 cm; Wt 80.7 kg
[~2018-02-21 23:00] MED LIST changes: -LOSA100T6 PO; +LOSA100T7 PO; +METF500T16 PO; -METF500T5 PO
--- NOTE | 2018-02-21 23:42 | PHYS DOC ---
Past Medical History Past Medical History: Diabetes-Type II, Hypertension, Hyperthyroid, Sciatica Additional Past Medical Histor: ESOPHAGEAL POLYPS, OVARIAN CYST, STOMACH ULCER Past Surgical History: Cholecystectomy, Tonsillectomy, Tubal ligation Additional Past Surgical Histo: LEFT ANKLE SX, BILAT ELBOW SX, ADDENOIDECTOMY, CYST REMOVAL BILAT ARMPITS Alcohol Use: Occasionally Drug Use: Marijuana Adult General Chief Complaint Chief Complaint: Congestion HPI HPI Patient is a 37 year old female who presents with head congestion, cough, chest congestion, throat pain x 3 days. Review of Systems Review of Systems Constitutional: Denies fever or chills [] Eyes: Denies change in visual acuity, redness, or eye pain [] HENT: Nasal congestion and sore throat [] Respiratory: Productive cough. Denies shortness of breath [] Cardiovascular: No additional information not addressed in HPI [] GI: bilateral upper abdominal pain, nausea, vomiting. Denies bloody stools or diarrhea [] : Denies dysuria or hematuria [] Musculoskeletal: Denies back pain or joint pain [] Integument: Denies rash or skin lesions [] Neurologic: Denies headache, focal weakness or sensory changes [] All other systems were reviewed and found to be within normal limits, except as documented in this note. Current Medications Current Medications Current Medications Medications (Trade) Dose Ordered Sig/Dwayne Start Time Stop Time Status Last Admin Dose Admin Albuterol/ Ipratropium (Duoneb) 3 ml 1X ONCE 02/21/18 23:45 02/21/18 23:46 DC 02/22/18 00:32 3 ML Dexamethasone (Decadron) 6 mg 1X ONCE 02/21/18 23:45 02/21/18 23:46 DC 02/22/18 00:28 6 MG Allergies Allergies Allergies Coded Allergies Type Severity Reaction Last Updated Verified Cephalexin Monohydrate Allergy Intermediate Itching 04/14/17 Yes latex Allergy Intermediate Itching 04/14/17 Yes oxycodone Allergy Intermediate 04/17/17 Yes Penicillins Allergy Mild Itching 04/14/17 Yes amoxicillin Allergy Unknown 01/18/18 Yes Physical Exam Physical Exam Constitutional: Well developed, well nourished, no acute distress, non-toxic appearance. [] HENT: Frontal sinus tenderness. Normocephalic, atraumatic, bilateral external ears normal, oropharynx moist, no oral exudates, nose congestion and clear drainage. [] Eyes: PERRLA, EOMI, conjunctiva normal, no discharge. [] Neck: Normal range of motion, no tenderness, supple, no stridor. [] Cardiovascular:Heart rate regular rhythm, no murmur [] Lungs & Thorax: Bilateral lower lobe breath sounds have expiratory wheezes to auscultation [] Abdomen: Bowel sounds normal, soft, no tenderness, no masses, no pulsatile masses. [] Skin: Warm, dry, no erythema, no rash. [] Back: No tenderness, no CVA tenderness. [] Extremities: No tenderness, no cyanosis, no clubbing, ROM intact, no edema. [] Neurologic: Alert and oriented X 3, normal motor function, normal sensory function, no focal deficits noted. [] Psychologic: Affect normal, judgement normal, mood normal. [] Current Patient Data Vital Signs Vital Signs Date Time Temp Pulse Resp B/P (MAP) Pulse Ox O2 Delivery O2 Flow Rate FiO2 02/22/18 01:00 89 126/67 (86) 96 Room Air 02/21/18 23:00 98.7 20 98.7 EKG EKG [] Radiology/Procedures Radiology/Procedures Chest x ray Impressions: no acute fiondign and read by Dr Alfaro. Course & Med Decision Making Course & Med Decision Making Patient is a 37 year old female who presents with head congestion, cough, chest congestion, throat pain x 3 days. Upon examination patient has left and right lower lobe expiratory wheezes. Throat is pink without exudates. Patient speaks in full sentences. Patient is coughing up clear mucus. Patient states she has a history of COPD, asthma, bronchitis, upper thyroidism, polyps on her esophagus which she sees a GI doctor for. Patient is allergic to cephalexin, penicillin, amoxicillin, latex, oxycodone. Patient states she does have an albuterol emergency inhaler at home before she's been using. Patient states she also has a nebulizer at home but has not been using any breathing treatments. Patient rates her head pain at a 6 out of 10. She is alert and oriented and neurologically intact. Patient denies nausea, vomiting, diarrhea, dizziness. States that she has upper bilateral quadrant abdominal pain from coughing and heaving from coughing. No extremity edema. Bilateral ears have pearly white tympanic membranes. Patient does have frontal sinus tenderness with palpation. A DuoNeb and dexamethasone is ordered for the patient and the ED. Patient has no acute findings. Patient to be sent home with Tessalon Perles and 4 days of prednisone. Strep is negative. Patient is stable and in no distress. [] Staff Physician Addendum: I was working in the ER during the course of this patient's visit. I was available for consultation as needed, but I was not directly involved in the care of this patient. Dragon Disclaimer Dragon Disclaimer This electronic medical record was generated, in whole or in part, using a voice recognition dictation system. Departure Departure Impression: Primary Impression: URI (upper respiratory infection) Disposition: HOME, SELF-CARE Condition: STABLE Referrals: CARIDAD SKINNER MD (PCP) Patient Instructions: Upper Respiratory Infection, Adult Scripts Prednisone (PREDNISONE) 50 Mg Tablet 1 TAB PO DAILY, #4 TAB Prov: GLENN GARZA APRN 02/22/18 Benzonatate (TESSALON PERLE) 100 Mg Capsule 1 CAP PO TID, #30 CAP Prov: GLENN GARZA APRN 02/22/18 Problem Qualifiers Primary Impression: URI (upper respiratory infection) URI type: unspecified viral URI Qualified Codes: J06.9 - Acute upper respiratory infection, unspecified GLENN GARZA APRN Feb 21, 2018 23:42 DEYSI ALFARO MD Feb 22, 2018 03:04
[2018-02-21] MEDS ORDERED: DEXAMETHASONE 4 MG TABLET PO ONE (23:45)
[2018-02-21] MEDS ORDERED: IPRATRPIUM/ALBUTEROL 0.5/2.5MG 3 ML NEBU. NEB ONE (23:45)
[2018-02-22] MEDS ORDERED: PRED50TA PO (00:08)
[2018-02-22] MEDS ORDERED: BENZ100C PO (00:08)
[2018-02-22 01:00] VITALS: BP 126/67
--- NOTE | 2018-02-22 08:09 | RAD ---
Chest radiograph 02/21/2018 11:41 PM INDICATION: Cough COMPARISON: Chest radiograph March 19, 2016 TECHNIQUE: Frontal and lateral views of the chest are provided. FINDINGS: The cardiomediastinal silhouette is within normal limits. There are no pleural effusions. There is no pulmonary vascular congestion. There is no pneumothorax. The lungs are clear. No significant osseous abnormality is identified. IMPRESSION: No acute cardiopulmonary process. Electronically signed by: Adore Mccabe MD (02/22/2018 8:05 AM) [id number]
== END 2018-02-22 01:25 | disposition home or self-care (01) ==
LOC: ER 23:00
DX: J06.9 Acute upper respiratory infection, unspecified (principal); E11.9 Type 2 diabetes mellitus without complications; I10 Essential (primary) hypertension; E05.90 Thyrotoxicosis, unspecified without thyrotoxic crisis or storm; Z88.0 Allergy status to penicillin; Z88.1 Allergy status to other antibiotic agents; Z88.5 Allergy status to narcotic agent; Z91.040 Latex allergy status
CPT/HCPCS: 71046; 87070; 87880; 94640; 99285; J7620; J8540

== ENCOUNTER 2018-02-28 16:51 | Emergency (ER) | payer OTHER ==
[~2018-02-28] VITALS: Ht 167.6 cm; Wt 84.8 kg
[~2018-02-28 16:51] MED LIST changes: +BENZ100C PO
[2018-02-28] MEDS ORDERED: IPRATRPIUM/ALBUTEROL 0.5/2.5MG 3 ML NEBU. NEB ONE (17:30)
[2018-02-28 18:50] VITALS: BP 123/75
--- NOTE | 2018-02-28 18:51 | PHYS DOC ---
Past Medical History Past Medical History: Diabetes-Type II, Hypertension, Hyperthyroid, Sciatica Additional Past Medical Histor: ESOPHAGEAL POLYPS, OVARIAN CYST, STOMACH ULCER Past Surgical History: Cholecystectomy, Tonsillectomy, Tubal ligation Additional Past Surgical Histo: LEFT ANKLE SX, BILAT ELBOW SX, ADDENOIDECTOMY, CYST REMOVAL BILAT ARMPITS Alcohol Use: Occasionally Drug Use: Marijuana Adult General Chief Complaint Chief Complaint: SHORTNESS OF BREATH HPI HPI Patient is a 37 year old female who presents with cough and reported shortness of breath. The patient states that she was seen and treated at [facility] a few days ago. She was prescribed Zithromax as well as other medications. She states that she took 4 days of the medications and felt like she was not improving so she called the nurse hotline. She states that the nurse told her to stop taking the antibiotics. The patient states that she did not take her last dose and throat in the trash. She then felt like she was worsening so she presented to the emergency department. She does have a nebulizer machine with breathing treatments at home that she states are helping. Review of Systems Review of Systems Constitutional: Denies fever or chills [] Eyes: Denies change in visual acuity, redness, or eye pain [] HENT: Denies nasal congestion or sore throat [] Respiratory: See history of present illness Cardiovascular: No additional information not addressed in HPI [] GI: Denies abdominal pain, nausea, vomiting, bloody stools or diarrhea [] : Denies dysuria or hematuria [] Musculoskeletal: Denies back pain or joint pain [] Integument: Denies rash or skin lesions [] Neurologic: Denies headache, focal weakness or sensory changes [] Endocrine: Denies polyuria or polydipsia [] All other systems were reviewed and found to be within normal limits, except as documented in this note. Current Medications Current Medications Current Medications Medications (Trade) Dose Ordered Sig/Dwayne Start Time Stop Time Status Last Admin Dose Admin Albuterol/ Ipratropium (Duoneb) 3 ml 1X ONCE 02/28/18 17:30 02/28/18 17:31 DC 02/28/18 17:58 3 ML Allergies Allergies Allergies Coded Allergies Type Severity Reaction Last Updated Verified Cephalexin Monohydrate Allergy Intermediate Itching 04/14/17 Yes latex Allergy Intermediate Itching 04/14/17 Yes oxycodone Allergy Intermediate 04/17/17 Yes Penicillins Allergy Mild Itching 04/14/17 Yes amoxicillin Allergy Unknown 01/18/18 Yes Physical Exam Physical Exam Constitutional: Well developed, well nourished, no acute distress, non-toxic appearance. [] HENT: Normocephalic, atraumatic, bilateral external ears normal, oropharynx moist, no oral exudates, nose normal. [] Eyes: PERRLA, EOMI, conjunctiva normal, no discharge. [] Neck: Normal range of motion, no tenderness, supple, no stridor. [] Cardiovascular:Heart rate regular rhythm, no murmur [] Lungs & Thorax: Bilateral breath sounds are slightly decreased at bases with a few scattered rhonchi noted Abdomen: Bowel sounds normal, soft, no tenderness, no masses, no pulsatile masses. [] Skin: Warm, dry, no erythema, no rash. [] Back: No tenderness, no CVA tenderness. [] Extremities: No tenderness, no cyanosis, no clubbing, ROM intact, no edema. [] Neurologic: Alert and oriented X 3, normal motor function, normal sensory function, no focal deficits noted. [] Psychologic: Affect normal, judgement normal, mood normal. [] Current Patient Data Vital Signs Vital Signs Date Time Temp Pulse Resp B/P (MAP) Pulse Ox O2 Delivery O2 Flow Rate FiO2 02/28/18 18:50 123/75 (91) Room Air 02/28/18 17:59 100 02/28/18 16:51 98.5 109 24 98.5 EKG EKG [] Radiology/Procedures Radiology/Procedures [] Course & Med Decision Making Course & Med Decision Making Pertinent Labs and Imaging studies reviewed. (See chart for details) []The patient was given a nebulized treatment in the emergency department which resolved her symptoms. She is being discharged home and is to finish the medications that she was prescribed at [facility]. She is to use her nebulizer machine scheduled at home. She is to follow-up with her primary care provider. She is in agreement with this plan. Dragon Disclaimer Dragon Disclaimer This electronic medical record was generated, in whole or in part, using a voice recognition dictation system. Departure Departure Impression: Primary Impression: Acute bronchitis Disposition: 01 HOME, SELF-CARE Condition: STABLE Referrals: CARIDAD SKINNER MD (PCP) Patient Instructions: Acute Bronchitis Additional Instructions: Finish the medications that you were prescribed at [facility]. Follow-up with your primary care provider in 3 days for recheck or return to the emergency department if worsening. Attending Signature Attending Signature I have reviewed the PA/CORPORATE AFFAIRS MANAGER's note and plan of care. I was available for consultation as needed during the patient's visit in the emergency department. I agree with the clinical impression, plan, and disposition. CORINNE SOLIZ APRN Feb 28, 2018 18:51 MAYNOR MARIN DO Mar 04, 2018 05:50
--- NOTE | 2018-02-28 18:54 | RAD ---
PA and lateral chest radiographs 02/28/2018 Clinical History: Weakness, cough and shortness of breath for one week. PA and lateral digital radiographs of the chest were obtained. Comparison study is dated 03/19/2016. The cardiac and mediastinal silhouettes are within normal limits in size and configuration. No pulmonary infiltrate is seen. No pleural effusion or pneumothorax is noted. The osseous structures are grossly intact. Impression: No radiographic evidence of active cardiopulmonary disease. Electronically signed by: Mark Galvez MD (02/28/2018 6:50 PM) [facility]
== END 2018-02-28 19:04 | disposition home or self-care (01) ==
LOC: ER 16:51
DX: J20.9 Acute bronchitis, unspecified (principal); I10 Essential (primary) hypertension; E11.9 Type 2 diabetes mellitus without complications; E05.90 Thyrotoxicosis, unspecified without thyrotoxic crisis or storm; Z88.0 Allergy status to penicillin; Z88.1 Allergy status to other antibiotic agents; Z88.5 Allergy status to narcotic agent; Z91.040 Latex allergy status
CPT/HCPCS: 71046; 94640; 99284; J7620

== ENCOUNTER 2018-03-04 18:19 | Emergency (ER) | payer OTHER ==
[~2018-03-04] VITALS: Ht 167.6 cm; Wt 84.8 kg
[2018-03-04 18:28] VITALS: BP 149/102
[2018-03-04] MEDS ORDERED: predniSONE 20 MG TABLET PO ONE (18:30)
[2018-03-04] MEDS ORDERED: ALBUTEROL SULFATE 2.5 MG/3 ML NEBU. NEB ONE (18:30)
--- NOTE | 2018-03-04 18:33 | PHYS DOC ---
Past Medical History Past Medical History: Diabetes-Type II, Hypertension, Hyperthyroid, Sciatica Additional Past Medical Histor: ESOPHAGEAL POLYPS, OVARIAN CYST, STOMACH ULCER Past Surgical History: Cholecystectomy, Tonsillectomy, Tubal ligation Additional Past Surgical Histo: LEFT ANKLE SX, BILAT ELBOW SX, ADDENOIDECTOMY, CYST REMOVAL BILAT ARMPITS Alcohol Use: Occasionally Drug Use: Marijuana Adult General Chief Complaint Chief Complaint: ASTHMA HPI HPI Patient is a 37 year old F who presents with cough, congestion and shortness of breath. She has known asthma but states she is not on inhalers at home. Review of Systems Review of Systems Constitutional: Denies fever or chills Eyes: Denies change in visual acuity, redness, or eye pain HENT: Reports nasal congestion, scratchy throat. Respiratory: Reports cough, shortness of breath and wheezing. Cardiovascular: Denies chest pain. GI: Denies abdominal pain, nausea, vomiting, bloody stools or diarrhea Musculoskeletal: Denies back pain or joint pain Integument: Denies rash or skin lesions Neurologic: Denies headache, focal weakness or sensory changes All other systems were reviewed and found to be within normal limits, except as documented in this note. Current Medications Current Medications Current Medications Medications (Trade) Dose Ordered Sig/Dwayne Start Time Stop Time Status Last Admin Dose Admin Albuterol Sulfate (Ventolin Neb Soln) 2.5 mg 1X ONCE 03/04/18 18:30 03/04/18 18:31 DC 03/04/18 18:30 2.5 MG Guaifenesin/ Codeine Phosphate (Robitussin Ac) 5 ml PRN Q6HRS PRN 03/04/18 18:45 03/04/18 18:49 5 ML Prednisone (Prednisone) 60 mg 1X ONCE 03/04/18 18:30 03/04/18 18:31 DC 03/04/18 18:49 60 MG Allergies Allergies Allergies Coded Allergies Type Severity Reaction Last Updated Verified Cephalexin Monohydrate Allergy Intermediate Itching 04/14/17 Yes latex Allergy Intermediate Itching 04/14/17 Yes oxycodone Allergy Intermediate 04/17/17 Yes Penicillins Allergy Mild Itching 04/14/17 Yes amoxicillin Allergy Unknown 01/18/18 Yes Physical Exam Physical Exam Constitutional: Well developed, well nourished, no acute distress, non-toxic appearance. HENT: Normocephalic, atraumatic, bilateral external ears normal, oropharynx moist, no oral exudates, nose normal. Mild erythema of throat. Neck: Normal range of motion, no tenderness, supple, no stridor. Cardiovascular:Heart rate regular rhythm, no murmur Lungs & Thorax: Decreased breath sounds, mild wheezes throughout. Abdomen: Bowel sounds normal, soft, no tenderness, no masses, no pulsatile masses. Skin: Warm, dry, no erythema, no rash. Back: No tenderness, no CVA tenderness. Extremities: No tenderness, no cyanosis, no clubbing, ROM intact, no edema. Neurologic: Alert and oriented X 3, normal motor function, normal sensory function, no focal deficits noted. Psychologic: Somewhat bizarre behavior. Slouched over in chair acting like she can barely breath or talk but then after I left the room and came back in she was sitting up and painting her nails. Current Patient Data Vital Signs Vital Signs Date Time Temp Pulse Resp B/P (MAP) Pulse Ox O2 Delivery O2 Flow Rate FiO2 03/04/18 18:46 96 Room Air 03/04/18 18:28 98.4 107 20 149/102 (118) 98.4 EKG EKG [] Radiology/Procedures Radiology/Procedures CXR: No infiltrates or acute process. Course & Med Decision Making Course & Med Decision Making Pertinent Labs and Imaging studies reviewed. (See chart for details) Pt doing much better after nebulizer treatment and oral medication. Asthma exacerbation most likely from underlying bronchial infection. Green sputum and nasal congestion associated with this. Pt to f/u with her PCP and return if symptoms worsen at anytime. Dragon Disclaimer Dragon Disclaimer This electronic medical record was generated, in whole or in part, using a voice recognition dictation system. Departure Departure Impression: Primary Impression: Asthma exacerbation Additional Impression: Acute bronchitis Disposition: 01 HOME, SELF-CARE Condition: IMPROVED Referrals: CARIDAD SKINNER MD (PCP) Patient Instructions: Acute Bronchitis, [id number], Asthma, Adult, Easy-to- Read Scripts Hydrocodone/Chlorphen Polis (HYDROCODONE-CHLORPHENIRAM SUSP) 5 Ml Marta.er.12h 5 ML PO PRN Q12HR PRN for COUGH for 10 Days, #100 ML 0 Refills Prov: AMAURY CHRISTIAN 03/04/18 Prednisone (PREDNISONE) 20 Mg Tablet 1 TAB PO BID, #10 TAB Prov: AMAURY CHRISTIAN 03/04/18 Albuterol Sulfate (PROAIR HFA INHALER) 8.5 Gm Hfa.aer.ad 1 PUFF INH PRN Q6HRS PRN for SHORTNESS OF BREATH, #1 INHALER 0 Refills Prov: AMAURY CHRISTIAN 03/04/18 Doxycycline Hyclate (DOXYCYCLINE HYCLATE) 100 Mg Capsule 1 CAP PO BID, #20 CAP Prov: AMAURY CHRISTIAN 03/04/18 Problem Qualifiers AMAURY CHRISTIAN Mar 04, 2018 18:33
[2018-03-04] MEDS ORDERED: PRED20TA PO (18:45)
[2018-03-04] MEDS ORDERED: DOXY100C2 PO (18:45)
[2018-03-04] MEDS ORDERED: guaiFENesin/CODEINE 100mg/10mg 5 ML LIQUID PO PRN (18:45)
[2018-03-04] MEDS ORDERED: PROAIR HFA8.5 GM INH (18:45)
[2018-03-04] MEDS ORDERED: HYDR5SUS PO (18:46)
--- NOTE | 2018-03-04 19:36 | RAD ---
Exam performed: 2 views of the chest. Indication: COUGH Date of Service: 03/04/2018 6:28 PM . Comparison : 2 views chest from February 28, 2018 Findings: PA and lateral radiographs of the chest reveal a normal cardiomediastinal contour. The lungs are clear. No pleural fluid is seen. The visualized osseous structures are unremarkable. Impression: No acute cardiopulmonary process seen. Electronically signed by: Daniella Valdes MD (03/04/2018 7:32 PM) [facility]
== END 2018-03-04 19:26 | disposition home or self-care (01) ==
LOC: ER 18:19
DX: J45.901 Unspecified asthma with (acute) exacerbation (principal); E11.9 Type 2 diabetes mellitus without complications; I10 Essential (primary) hypertension; E05.90 Thyrotoxicosis, unspecified without thyrotoxic crisis or storm; Z90.49 Acquired absence of other specified parts of digestive tract; Z90.89 Acquired absence of other organs; Z98.51 Tubal ligation status; Z88.0 Allergy status to penicillin; Z88.1 Allergy status to other antibiotic agents; Z91.040 Latex allergy status
CPT/HCPCS: 71046; 94640; 99284; J7512; J7613

== ENCOUNTER 2018-03-27 22:36 | Emergency (ER) | payer SELFPAY ==
[~2018-03-27] VITALS: Ht 170.2 cm; Wt 86.2 kg
[~2018-03-27 22:36] MED LIST changes: +DOXY100C2 PO; +HYDR5SUS PO
[2018-03-27 22:42] VITALS: BP 138/94
--- NOTE | 2018-03-27 23:17 | PHYS DOC ---
Past Medical History Past Medical History: Diabetes-Type II, Hypertension, Hyperthyroid, Sciatica Additional Past Medical Histor: ESOPHAGEAL POLYPS, OVARIAN CYST, STOMACH ULCER Past Surgical History: Cholecystectomy, Tonsillectomy, Tubal ligation Additional Past Surgical Histo: LEFT ANKLE SX, BILAT ELBOW SX, ADDENOIDECTOMY, CYST REMOVAL BILAT ARMPITS Alcohol Use: Occasionally Drug Use: Marijuana Adult General Chief Complaint Chief Complaint: BACK PAIN - NO INJURY HPI HPI Patient is a 38 year old AA female who presents to the ER today with complaints of left-sided low back pain that radiates to her left hip. Patient also reports right knee pain. States that 3 days ago she accidentally knocked her knee into a piece of furniture and has had anterior right knee pain since then. Patient states that her back pain has started gradually over the last several days. Patient states she has recently been moving after she was evicted from her home and after her grandmother's recent . Patient denies any dysuria, increased urinary frequency, abdominal pain, cellulitis digit, numbness or tingling in her legs, or loss of bowel or bladder control. She states that she has been able to bear weight on her right leg however her right knee hurts when she bends it. Review of Systems Review of Systems Constitutional: Denies fever or chills [] Respiratory: Denies cough or shortness of breath [] Cardiovascular: No additional information not addressed in HPI [] GI: Denies abdominal pain, nausea, vomiting, or diarrhea [] : Denies increased frequency, dysuria or hematuria [] Musculoskeletal: reports left low back pain and r knee pain Integument: Denies rash or skin lesions [] Neurologic: Denies headache, focal weakness or sensory changes [] All other systems were reviewed and found to be within normal limits, except as documented in this note. Current Medications Current Medications Current Medications Medications (Trade) Dose Ordered Sig/Dwayne Start Time Stop Time Status Last Admin Dose Admin Ketorolac Tromethamine (Toradol Im) 30 mg 1X ONCE 03/27/18 23:30 03/27/18 23:31 DC 03/27/18 23:39 30 MG Orphenadrine Citrate (Norflex) 60 mg 1X ONCE 03/27/18 23:30 03/27/18 23:31 DC 03/27/18 23:39 60 MG Allergies Allergies Allergies Coded Allergies Type Severity Reaction Last Updated Verified Cephalexin Monohydrate Allergy Intermediate Itching 04/14/17 Yes latex Allergy Intermediate Itching 04/14/17 Yes oxycodone Allergy Intermediate 04/17/17 Yes Penicillins Allergy Mild Itching 04/14/17 Yes amoxicillin Allergy Unknown 01/18/18 Yes Physical Exam Physical Exam Constitutional: Well developed, well nourished, no acute distress, non-toxic appearance. [] HENT: Normocephalic, atraumatic, bilateral external ears normal, nose normal. [] Eyes: PERRLA, conjunctiva normal, no discharge. [] Neck: Normal range of motion, no stridor. [] Cardiovascular:Heart rate regular rhythm, no murmur [] Lungs & Thorax: Bilateral breath sounds clear to auscultation [] Back: No bony tenderness Extremities: no cyanosis, no clubbing, ROM intact, no edema, R anterior knee tender to palpation. [] Neurologic: Alert and oriented X 3, normal motor function, normal sensory function, no focal deficits noted. [] Psychologic: Affect normal, judgement normal, mood normal. [] Current Patient Data Vital Signs Vital Signs Date Time Temp Pulse Resp B/P (MAP) Pulse Ox O2 Delivery O2 Flow Rate FiO2 03/27/18 22:42 98.1 99 18 138/94 (109) 95 Room Air 98.1 EKG EKG [] Radiology/Procedures Radiology/Procedures Xray of R knee is negative for any acute fracture or dislocation, read by Dr. Lua[] Course & Med Decision Making Course & Med Decision Making Pertinent Labs and Imaging studies reviewed. (See chart for details) Dx: low back pain with sciatica, R knee contusion xray of R knee was negative. Pt was given 60 mg of norflex and 30 mg of toradol IM in the department for back pain. She reports relief of pain after medications. An hugh wrap was applied to the right knee. Pt was encouraged to take tylenol as needed for pain. Prescription written for flexeril. May apply ice or heat to sore areas for relief of pain, activity as tolerated. Follow up with PCP next week if symptoms persist, return to the ER if symptoms worsen. Patient verbalized an understanding of home care, medications, follow-up, and return to ED instructions and was in agreement with the plan of care. [] Dragon Disclaimer Dragon Disclaimer This electronic medical record was generated, in whole or in part, using a voice recognition dictation system. Departure Departure Impression: Primary Impression: Contusion of right knee, initial encounter Additional Impression: Low back pain with left-sided sciatica Disposition: HOME, SELF-CARE Condition: STABLE Referrals: CARIDAD SKINNER MD (PCP) Patient Instructions: Back Pain, Adult, [id number], Contusion, [id number] Additional Instructions: Fill prescription and use as directed. Take tylenol as needed for pain. May apply ice or heat to sore areas for relief of pain, activity as tolerated. Follow up with PCP next week if symptoms persist, return to the ER if symptoms worsen. [] Scripts Cyclobenzaprine Hcl (CYCLOBENZAPRINE HCL) 10 Mg Tablet 1 TAB PO TID PRN for PAIN for 7 Days, #21 TAB 0 Refills Prov: MIRZA PARKER APRN 03/27/18 Problem Qualifiers Additional Impression: Low back pain with left-sided sciatica Chronicity: acute Back pain laterality: left Qualified Codes: M54.42 - Lumbago with sciatica, left side MIRZA PARKER APRN Mar 27, 2018 23:17
[2018-03-27] MEDS ORDERED: ORPHENADRINE CITRATE 60 MG/2 ML VIAL. IM ONE (23:30)
[2018-03-27] MEDS ORDERED: KETOROLAC 60 MG/2 ML INJ. IM ONE (23:30)
[2018-03-27] MEDS ORDERED: CYCL10TA2 PO (23:58)
--- NOTE | 2018-03-28 06:25 | RAD ---
EXAM: 3 views right knee DATE: 03/27/2018 11:28 PM INDICATION: knee pain after hitting it COMPARISON: No Prior FINDINGS: No evidence of acute fracture or dislocation. Joint spaces are preserved without significant degenerative/proliferative change. No knee joint effusion. Mild prepatellar soft tissue swelling. IMPRESSION: 1. No evidence of acute fracture or dislocation. 2. Mild prepatellar soft tissue swelling. Electronically signed by: Onofre Gage MD (03/28/2018 6:21 AM) [facility]
== END 2018-03-28 00:01 | disposition home or self-care (01) ==
LOC: ER 22:36
DX: S80.01XA Contusion of right knee, initial encounter (principal); M54.42 Lumbago with sciatica, left side; E11.9 Type 2 diabetes mellitus without complications; I10 Essential (primary) hypertension; E05.90 Thyrotoxicosis, unspecified without thyrotoxic crisis or storm; Z90.49 Acquired absence of other specified parts of digestive tract; Z90.89 Acquired absence of other organs; Z98.51 Tubal ligation status; Z88.0 Allergy status to penicillin; Z88.1 Allergy status to other antibiotic agents; Z88.5 Allergy status to narcotic agent; Z91.040 Latex allergy status; W22.03XA Walked into furniture, initial encounter; Y93.89 Activity, other specified; Y92.89 Other specified places as the place of occurrence of the external cause; Y99.8 Other external cause status
CPT/HCPCS: 73562; 96372; 99284; J1885; J2360

== ENCOUNTER 2018-05-21 22:32 | Emergency (ER) | payer SELFPAY ==
[~2018-05-21] VITALS: Ht 167.6 cm; Wt 86.2 kg
[~2018-05-21 22:32] MED LIST changes: +GABA300C18 PO; -GABA300C8 PO; -HYDR-2758; +HYDR-2761; -HYDR-2762 PO; +HYDR-2765 PO; +HYDR-3135 PO; +HYDR-3164 PO; -HYDR-963 PO; -HYDR-971 PO; +LOSA100T14 PO; -LOSA100T7 PO
[2018-05-21 22:42] VITALS: BP 141/107
[2018-05-21] MEDS ORDERED: HYDROcodone/APAP 5/325MG 1 TAB TABLET PO ONE (23:00)
[2018-05-21] MEDS ORDERED: MORPHINE SULFATE 4 MG/ML VIAL. IM ONE (23:00)
[2018-05-21] MEDS ORDERED: DICL50TA4 PO (23:12)
[2018-05-21] MEDS ORDERED: METH4TAB2 PO (23:12)
[2018-05-21] MEDS ORDERED: CYCL10TA2 PO (23:12)
--- NOTE | 2018-05-21 23:12 | PHYS DOC ---
Past Medical History Past Medical History: Diabetes-Type II, Hypertension, Hyperthyroid, Sciatica Additional Past Medical Histor: ESOPHAGEAL POLYPS, OVARIAN CYST, STOMACH ULCER Past Surgical History: Cholecystectomy, Tonsillectomy, Tubal ligation Additional Past Surgical Histo: LEFT ANKLE SX, BILAT ELBOW SX, ADDENOIDECTOMY, CYST REMOVAL BILAT ARMPITS Alcohol Use: Occasionally Drug Use: Marijuana Adult General Chief Complaint Chief Complaint: BACK PAIN - NO INJURY HPI HPI Patient is a 38 year old female who presents complaining of moderate mid lower and upper back pain that has been going on since November 2017 after she fell at work. Patient states she has been following up with workman comp but she currently does not have any medical insurance. She states she was referred to an orthopedic doctor but she cannot be seen because she does not have any way to pay for it. Patient denies any pain radiating to bilateral lower extremities. Denies any loss of bowel bladder function. She is requesting morphine by mouth and injection. Informed patient I'll be glad to give her morphine IM and one hydrocodone. She agreed to eat. Review of Systems Review of Systems Constitutional: Denies fever or chills [] Musculoskeletal: Reports neck pain, mid and low back pain Integument: Denies rash or skin lesions [] Neurologic: Denies headache, focal weakness or sensory changes [] All other systems were reviewed and found to be within normal limits, except as documented in this note. Current Medications Current Medications Current Medications Medications (Trade) Dose Ordered Sig/Dwayne Start Time Stop Time Status Last Admin Dose Admin Acetaminophen/ Hydrocodone Bitart (Lortab 5/325) 1 tab 1X ONCE 05/21/18 23:00 05/21/18 23:01 DC 05/21/18 22:59 1 TAB Cyclobenzaprine HCl (Flexeril) 10 mg 1X ONCE 05/21/18 23:30 05/21/18 23:31 05/21/18 23:00 10 MG Morphine Sulfate (Morphine Sulfate) 4 mg 1X ONCE 05/21/18 23:00 05/21/18 23:01 DC 05/21/18 22:58 4 MG Allergies Allergies Allergies Coded Allergies Type Severity Reaction Last Updated Verified Cephalexin Monohydrate Allergy Intermediate Itching 04/14/17 Yes amoxicillin Allergy Intermediate 05/21/18 Yes latex Allergy Intermediate Itching 04/14/17 Yes oxycodone Allergy Intermediate 04/17/17 Yes Penicillins Allergy Mild Itching 04/14/17 Yes Physical Exam Physical Exam Constitutional: Well developed, well nourished, no acute distress, non-toxic appearance. [] Skin: Warm, dry, no erythema, no rash. [] Back: No tenderness, no CVA tenderness. [] Extremities: No tenderness, no cyanosis, no clubbing, ROM intact, no edema. [] Neurologic: Alert and oriented X 3, normal motor function, normal sensory function, no focal deficits noted. [] Psychologic: Affect normal, judgement normal, mood normal. [] Current Patient Data Vital Signs Vital Signs Date Time Temp Pulse Resp B/P (MAP) Pulse Ox O2 Delivery O2 Flow Rate FiO2 05/21/18 22:59 99 Room Air 05/21/18 22:34 97.8 99 20 141/107 (118) 97.8 EKG EKG [] Radiology/Procedures Radiology/Procedures [] Course & Med Decision Making Course & Med Decision Making Pertinent Labs and Imaging studies reviewed. (See chart for details) This is a 38-year-old female patient presented to the ED today with chronic back pain. Requested patient to follow-up with orthopedic doctor as requested by the workman comp. Discharged with cyclobenzaprine, Medrol Dosepak and diclofenac. Provided orthopedic doctor for follow-up. Dragon Disclaimer Dragon Disclaimer This electronic medical record was generated, in whole or in part, using a voice recognition dictation system. Departure Departure Impression: Primary Impression: Chronic back pain Disposition: 01 HOME, SELF-CARE Condition: STABLE Referrals: NO PCP (PCP) SIENA MASTERS MD follow up in one week Patient Instructions: Back Exercises, [id number], Back Pain, Adult Additional Instructions: You were evaluated in the emergency room for chronic back pain. Follow-up with orthopedic doctor provided as soon as possible. Also establish care with a primary care doctor and follow-up for hypertension. Scripts Diclofenac Sodium (DICLOFENAC SODIUM) 50 Mg Tablet.dr 1 TAB PO BID, #30 TAB 0 Refills Prov: MUTUNGA,ZANA SCADA TECHNICIAN 05/21/18 Methylprednisolone (MEDROL) 4 Mg Tab.ds.pk 1 PKG PO UD, #1 PKG Prov: ZANA SAPP SCADA TECHNICIAN 05/21/18 Cyclobenzaprine Hcl (CYCLOBENZAPRINE HCL) 10 Mg Tablet 1 TAB PO TID, #30 TAB Prov: ZANA SAPP APRN 05/21/18 Problem Qualifiers Primary Impression: Chronic back pain Back pain location: low back pain Back pain laterality: bilateral Sciatica presence: without sciatica Qualified Codes: M54.5 - Low back pain; G89.29 - Other chronic pain MIMIANGÉLICAZANA Perez APRN May 21, 2018 23:12
[2018-05-21] MEDS ORDERED: CYCLOBENZAPRINE 10 MG TABLET. PO ONE (23:30)
== END 2018-05-21 23:32 | disposition home or self-care (01) ==
LOC: ER 22:32
DX: G89.29 Other chronic pain (principal); M54.5 Low back pain; M54.2 Cervicalgia; M54.6 Pain in thoracic spine; E11.9 Type 2 diabetes mellitus without complications; I10 Essential (primary) hypertension; E05.90 Thyrotoxicosis, unspecified without thyrotoxic crisis or storm; Z90.49 Acquired absence of other specified parts of digestive tract; Z90.89 Acquired absence of other organs; Z98.51 Tubal ligation status; Z88.0 Allergy status to penicillin; Z88.1 Allergy status to other antibiotic agents; Z88.5 Allergy status to narcotic agent; Z91.040 Latex allergy status
CPT/HCPCS: 96372; 99283; J2270

== ENCOUNTER 2018-11-22 10:49 | Emergency (ER) | payer SELFPAY ==
[~2018-11-22] VITALS: Ht 170.2 cm; Wt 86.2 kg
[~2018-11-22 10:49] MED LIST changes: +ALBU2.5V8 IH; +ALBU2.5V8 INH; +DICL50TA4 PO; +METH4TAB2 PO; -PROAIR HFA8.5 GM INH; -PROVENTIL HFA6.7 GM IH
[2018-11-22 11:01] VITALS: BP 134/94
--- NOTE | 2018-11-22 11:06 | PHYS DOC ---
Past Medical History Past Medical History: Diabetes-Type II, Hypertension, Hyperthyroid, Sciatica Additional Past Medical Histor: ESOPHAGEAL POLYPS, OVARIAN CYST, STOMACH ULCER Past Surgical History: Cholecystectomy, Tonsillectomy, Tubal ligation Additional Past Surgical Histo: LEFT ANKLE SX, BILAT ELBOW SX, ADDENOIDECTOMY, CYST REMOVAL BILAT ARMPITS Alcohol Use: Occasionally Drug Use: Marijuana Adult General Chief Complaint Chief Complaint: COUGH HPI HPI Patient is a 38 year old female with a history of hypertension, asthma, diabetes type 2, who presents to the ED today complaining of productive cough, shortness of breath, wheezing, intermittently for 6 weeks. Patient states she has followed up with the PCP who encouraged her to take bwid-fyt-pscnspk remedies and gave her an albuterol inhaler. Patient states symptoms are not improving. Denies any current history of smoking but states she is a former smoker. PCP Dr. Llamas Review of Systems Review of Systems Constitutional: Denies fever or chills [] Eyes: Denies change in visual acuity, redness, or eye pain [] HENT: Denies nasal congestion or sore throat [] Respiratory: Reports productive cough with yellow sputum, shortness of breath [] Cardiovascular: No additional information not addressed in HPI [] GI: Denies abdominal pain, nausea, vomiting, bloody stools or diarrhea [] : Denies dysuria or hematuria [] Musculoskeletal: Denies back pain or joint pain [] Integument: Denies rash or skin lesions [] Neurologic: Denies headache, focal weakness or sensory changes [] Endocrine: Denies polyuria or polydipsia [] All other systems were reviewed and found to be within normal limits, except as documented in this note. Current Medications Current Medications Current Medications Medications (Trade) Dose Ordered Sig/Dwayne Start Time Stop Time Status Last Admin Dose Admin Albuterol/ Ipratropium (Duoneb) 3 ml 1X ONCE 11/22/18 11:15 11/22/18 11:16 DC 11/22/18 11:19 3 ML Benzonatate (Tessalon Perle) 100 mg 1X ONCE 11/22/18 11:15 11/22/18 11:16 DC 11/22/18 11:17 100 MG Prednisone (Prednisone) 60 mg 1X ONCE 11/22/18 11:15 11/22/18 11:16 DC 11/22/18 11:18 60 MG Allergies Allergies Allergies Coded Allergies Type Severity Reaction Last Updated Verified Cephalexin Monohydrate Allergy Intermediate Itching 04/14/17 Yes amoxicillin Allergy Intermediate 05/21/18 Yes latex Allergy Intermediate Itching 04/14/17 Yes oxycodone Allergy Intermediate 04/17/17 Yes Penicillins Allergy Mild Itching 04/14/17 Yes Physical Exam Physical Exam Constitutional: Well developed, well nourished, no acute distress, non-toxic appearance. [] HENT: Normocephalic, atraumatic, bilateral external ears normal, oropharynx moist, no oral exudates, nose normal. [] Eyes: PERRLA, EOMI, conjunctiva normal, no discharge. [] Neck: Normal range of motion, no tenderness, supple, no stridor. [] Cardiovascular:Heart rate regular rhythm, no murmur [] Lungs & Thorax: Patient is actively coughing in the ED, diminished breath sounds to posterior lung bases. Chest feels tight. Abdomen: Bowel sounds normal, soft, no tenderness, no masses, no pulsatile masses. [] Skin: Warm, dry, no erythema, no rash. [] Back: No tenderness, no CVA tenderness. [] Extremities: No tenderness, no cyanosis, no clubbing, ROM intact, no edema. [] Neurologic: Alert and oriented X 3, normal motor function, normal sensory function, no focal deficits noted. [] Psychologic: Affect normal, judgement normal, mood normal. [] Current Patient Data Vital Signs Vital Signs Date Time Temp Pulse Resp B/P (MAP) Pulse Ox O2 Delivery O2 Flow Rate FiO2 11/22/18 11:22 96 Room Air 11/22/18 11:01 98.8 97 18 134/94 (107) 98.8 EKG EKG [] Radiology/Procedures Radiology/Procedures []PROCEDURE: CHEST PA & LATERAL EXAM: PA and Lateral Views of the Chest DATE: 11/22/2018 11:01 AM INDICATION: Cough and shortness of air for 6 weeks COMPARISON: 03/04/2018 FINDINGS: The heart is not enlarged. Mediastinal and hilar contours are normal. No focal parenchymal airspace opacity. No pleural effusion or pneumothorax. IMPRESSION: 1. No radiographic evidence for acute cardiopulmonary process. Electronically signed by: Onofre Gage MD (11/22/2018 11:29 AM) [id number] DICTATED and SIGNED BY: ONOFRE GAGE MD DATE: 11/22/18 1129 Course & Med Decision Making Course & Med Decision Making Pertinent Labs and Imaging studies reviewed. (See chart for details) This is a 38-year-old female patient presented to the ED today with cough, shortness of breath, symptoms began 6 weeks ago. Hx of asthma using inhaler and gamh-ixp-ybztpve cough medications as advised by the PCP. Chest x-ray is negative for any acute findings, O2 sats 97% on room air. Given a DuoNeb treatment, given Tessalon Perles. Breathing is back to baseline. Patient requesting cough syrup prescription strength for home use. Informed her at there is no indication for prescription strength cough syrup but i can give her Tessalon Perles. Then she requested something for pain. Recommended Tylenol/ Motrin. Informed patient there is no indication for aquatic pain medicine or prescription strength cough syrup. Discharged on prednisone, Tessalon Perles, albuterol inhaler and encouraged to take ehrq-nwr-jueekvs cough medicines. Dragon Disclaimer Dragon Disclaimer This electronic medical record was generated, in whole or in part, using a voice recognition dictation system. Departure Departure Impression: Primary Impression: Acute bronchitis Additional Impression: Asthma exacerbation Disposition: 01 HOME, SELF-CARE Condition: STABLE Referrals: NO PCP (PCP) JOANA MI MD followup in 1-2 weeks Patient Instructions: Acute Bronchitis, Asthma, Adult Additional Instructions: You were evaluated in the emergency room with bronchitis and asthma symptoms. Use the prescribed medications as ordered. Please follow-up with your own doctor in 1-2 weeks. Scripts Benzonatate (TESSALON PERLE) 100 Mg Capsule 1 CAP PO TID, #30 CAP Prov: MIKEAZANA PACKAGE SEALER MACHINE 11/22/18 Albuterol Sulfate (Proventil Hfa) 6.7 Gm Hfa.aer.ad 1 PUFF INH PRN Q6HRS PRN for SHORTNESS OF BREATH, #1 INHALER Prov: ZANA SAPP APRN 11/22/18 Prednisone (PREDNISONE) 50 Mg Tablet 1 TAB PO DAILY, #5 TAB Prov: MIKEAZANA PACKAGE SEALER MACHINE 11/22/18 Problem Qualifiers Primary Impression: Acute bronchitis Bronchitis organism: unspecified organism Qualified Codes: J20.9 - Acute bronchitis, unspecified Additional Impression: Asthma exacerbation Asthma severity: mild Asthma persistence: intermittent Qualified Codes: J45.21 - Mild intermittent asthma with (acute) exacerbation MIKEChrisZANA APRN Nov 22, 2018 11:06
[2018-11-22] MEDS ORDERED: predniSONE 20 MG TABLET PO ONE (11:15)
[2018-11-22] MEDS ORDERED: IPRATRPIUM/ALBUTEROL 0.5/2.5MG 3 ML NEBU. NEB ONE (11:15)
[2018-11-22] MEDS ORDERED: BENZONATATE 100 MG CAPSULE. PO ONE (11:15)
--- NOTE | 2018-11-22 11:31 | RAD ---
EXAM: PA and Lateral Views of the Chest DATE: 11/22/2018 11:01 AM INDICATION: Cough and shortness of air for 6 weeks COMPARISON: 03/04/2018 FINDINGS: The heart is not enlarged. Mediastinal and hilar contours are normal. No focal parenchymal airspace opacity. No pleural effusion or pneumothorax. IMPRESSION: 1. No radiographic evidence for acute cardiopulmonary process. Electronically signed by: Onofre Gage MD (11/22/2018 11:29 AM) [id number]
[2018-11-22] MEDS ORDERED: BENZ100C PO (12:00)
[2018-11-22] MEDS ORDERED: PROVENTIL HFA6.7 G2 INH (12:00)
[2018-11-22] MEDS ORDERED: PRED50TA PO (12:00)
== END 2018-11-22 12:09 | disposition home or self-care (01) ==
LOC: ER 10:49
DX: J45.21 Mild intermittent asthma with (acute) exacerbation (principal); J20.9 Acute bronchitis, unspecified; E11.9 Type 2 diabetes mellitus without complications; I10 Essential (primary) hypertension; E05.90 Thyrotoxicosis, unspecified without thyrotoxic crisis or storm; Z90.49 Acquired absence of other specified parts of digestive tract; Z90.89 Acquired absence of other organs; Z87.891 Personal history of nicotine dependence; Z98.51 Tubal ligation status; Z88.1 Allergy status to other antibiotic agents; Z88.0 Allergy status to penicillin; Z88.5 Allergy status to narcotic agent; Z91.040 Latex allergy status
CPT/HCPCS: 71046; 94640; 99284; J7512; J7620

== ENCOUNTER 2019-01-19 12:23 | Emergency (ER) | payer SELFPAY ==
[~2019-01-19] VITALS: Ht 170.2 cm; Wt 86.2 kg
[~2019-01-19 12:23] MED LIST changes: +PROVENTIL HFA6.7 G2 INH
[2019-01-19 12:25] VITALS: BP 139/91
[2019-01-19] MEDS ORDERED: GABAPENTIN 300 MG CAPSULE. PO STA (12:41)
[2019-01-19] MEDS ORDERED: NAPROXEN 500 MG TABLET PO STA (12:41)
[2019-01-19] MEDS ORDERED: CLINDAMYCIN HCL 150 MG CAPSULE. PO ONE (12:45)
[2019-01-19] MEDS ORDERED: CLIN300C8 PO (13:03)
[2019-01-19] MEDS ORDERED: DICL50TA2 PO (13:03)
[2019-01-19] MEDS ORDERED: GABA300C18 PO (13:03)
--- NOTE | 2019-01-19 13:04 | PHYS DOC ---
Past Medical History Past Medical History: Asthma, Diabetes-Type II, Hypertension, Hyperthyroid, Sciatica Additional Past Medical Histor: ESOPHAGEAL POLYPS, OVARIAN CYST, STOMACH ULCER Past Surgical History: Cholecystectomy, Tonsillectomy, Tubal ligation Additional Past Surgical Histo: LEFT ANKLE SX, BILAT ELBOW SX, ADDENOIDECTOMY, CYST REMOVAL BILAT ARMPITS Alcohol Use: Occasionally Drug Use: Marijuana Adult General Chief Complaint Chief Complaint: DENTAL PROBLEM HPI HPI Patient is a 38 year old female with history of diabetes type 2, hypertension, sciatica, who presents to the ED today complaining of 9 out of 10 left upper gum dental pain, left ear pain, symptoms began December 29, 2018. Patient is also complaining of tingling and numbness to her bilateral pinky fingers-chronic, she states she is supposed to be on gabapentin but ran out of the medications. Denies any fever. Denies any trismus. Denies anything specifically exacerbating or relieving her pain. Review of Systems Review of Systems Constitutional: Denies fever or chills [] HENT: Reports left ear pain. He reports left upper gum dental pain. Denies nasal congestion or sore throat [] Musculoskeletal: Reports chronic numbness and tingling to bilateral pinky fingers. Denies back pain or joint pain [] Integument: Denies rash or skin lesions [] Neurologic: Denies headache, focal weakness or sensory changes [] All other systems were reviewed and found to be within normal limits, except as documented in this note. Current Medications Current Medications Current Medications Medications (Trade) Dose Ordered Sig/Dwayne Start Time Stop Time Status Last Admin Dose Admin Clindamycin HCl (Cleocin) 300 mg 1X ONCE 01/19/19 12:45 01/19/19 12:47 DC Gabapentin (Neurontin) 600 mg 1X STAT 01/19/19 12:41 01/19/19 12:47 DC Naproxen (Naprosyn) 500 mg 1X STAT 01/19/19 12:41 01/19/19 12:47 DC Allergies Allergies Allergies Coded Allergies Type Severity Reaction Last Updated Verified Cephalexin Monohydrate Allergy Intermediate Itching 04/14/17 Yes amoxicillin Allergy Intermediate 05/21/18 Yes latex Allergy Intermediate Itching 04/14/17 Yes oxycodone Allergy Intermediate 04/17/17 Yes Penicillins Allergy Mild Itching 04/14/17 Yes Physical Exam Physical Exam Constitutional: Well developed, well nourished, no acute distress, non-toxic appearance. [] HENT: Normocephalic, atraumatic, bilateral external ears normal, oropharynx moist, no oral exudates, nose normal. [] No obvious dental infection noted, Left TM is mildly injected. There is small amount of cloudy fluid. Eyes: PERRLA, EOMI, conjunctiva normal, no discharge. [] Neck: Normal range of motion, no tenderness, supple, no stridor. [] Cardiovascular:Heart rate regular rhythm, no murmur [] Lungs & Thorax: Bilateral breath sounds clear to auscultation [] Abdomen: Bowel sounds normal, soft, no tenderness, no masses, no pulsatile masses. [] Skin: Warm, dry, no erythema, no rash. [] Back: No tenderness, no CVA tenderness. [] Extremities: No tenderness, no cyanosis, no clubbing, ROM intact, no edema. [] Neurologic: Alert and oriented X 3, normal motor function, normal sensory function, no focal deficits noted. [] Psychologic: Affect normal, judgement normal, mood normal. [] Current Patient Data Vital Signs Vital Signs Date Time Temp Pulse Resp B/P (MAP) Pulse Ox O2 Delivery O2 Flow Rate FiO2 01/19/19 12:25 98.1 89 14 139/91 (107) 97 Room Air 98.1 EKG EKG [] Radiology/Procedures Radiology/Procedures [] Course & Med Decision Making Course & Med Decision Making Pertinent Labs and Imaging studies reviewed. (See chart for details) This is a 38-year-old female patient presenting to the ED today with left ear infection, left upper gum dental pain and chronic neuropathy. Be discharged with gabapentin, clindamycin and diclofenac. Informed we do not prescribe narcotics for dental pain, ear pain as well as chronic neuropathy. Recommended she follows up with the dentist which she stated the dentist will not give her anything stronger for pain. Dragon Disclaimer Dragon Disclaimer This electronic medical record was generated, in whole or in part, using a voice recognition dictation system. Departure Departure Impression: Primary Impression: DM neuropathy, painful Additional Impressions: Dentalgia Left otitis media Disposition: 01 HOME, SELF-CARE Condition: STABLE Referrals: JOANA MI MD (PCP) Follow-up with your primary care doctor as well as a dentist next week Patient Instructions: Dental Pain, [id number], Diabetic Neuropathy, Otitis Media, Adult Additional Instructions: You were evaluated in the emergency room for ear infection, dental pain and neuropathy. Take the prescribed medications as ordered. Follow-up with your dentist as well as primary care doctor as soon as you can. Scripts Diclofenac Potassium (DICLOFENAC POTASSIUM) 50 Mg Tablet 1 TAB PO BID, #20 TAB 0 Refills Prov: ZANA SAPP APRN 01/19/19 Clindamycin Hcl (CLINDAMYCIN HCL) 300 Mg Capsule 1 CAP PO TID, #21 CAP Prov: ZANA SAPP APRN 01/19/19 Gabapentin (GABAPENTIN ) 300 Mg Capsule 300 MG PO TID for NEUROGENIC PAIN, #21 CAP Prov: ZANA SAPP APRN 01/19/19 Problem Qualifiers Primary Impression: DM neuropathy, painful Diabetes mellitus type: type 2 Diabetes mellitus complication detail: with other neurological complication Qualified Codes: E11.49 - Type 2 diabetes mellitus with other diabetic neurological complication Additional Impressions: Left otitis media Otitis media type: other nonsuppurative Chronicity: acute Recurrence: non-recurrent Qualified Codes: H65.192 - Other acute nonsuppurative otitis media, left ear ZANA SAPP APRN Jan 19, 2019 13:04
[2019-01-19] MEDS ORDERED: FLUCONAZOLE 100 MG TABLET. PO ONE (13:15)
== END 2019-01-19 13:10 | disposition home or self-care (01) ==
LOC: ER 12:23
DX: E11.49 Type 2 diabetes mellitus with other diabetic neurological complication (principal); H65.192 Other acute nonsuppurative otitis media, left ear; K08.89 Other specified disorders of teeth and supporting structures; I10 Essential (primary) hypertension; J45.909 Unspecified asthma, uncomplicated; Z88.1 Allergy status to other antibiotic agents; Z88.0 Allergy status to penicillin; Z88.5 Allergy status to narcotic agent
CPT/HCPCS: 99284

== ENCOUNTER 2019-04-22 18:52 | Emergency (ER) | payer SELFPAY ==
[~2019-04-22] VITALS: Ht 170.2 cm; Wt 86.2 kg
[~2019-04-22 18:52] MED LIST changes: -ALBU2.5V8 IH; +CLIN300C8 PO; +DICL50TA2 PO; +DOXY-96 PO; -DOXY100T9 PO; +LISI1TAB23 PO; -LISI1TAB3 PO; +PROVENTIL HFA6.7 GM IH; +SIMV20TA18 PO; -SIMV20TA3 PO
[2019-04-22 19:07] VITALS: BP 142/98
[2019-04-22] MEDS ORDERED: CLIN300C8 PO (19:37)
--- NOTE | 2019-04-22 19:38 | PHYS DOC ---
Past Medical History Past Medical History: Asthma, Diabetes-Type II, Hypertension, Hyperthyroid, Sciatica Additional Past Medical Histor: ESOPHAGEAL POLYPS, OVARIAN CYST, STOMACH ULCER (MAYNOR GRAVES APRN) Past Surgical History: Cholecystectomy, Tonsillectomy, Tubal ligation Additional Past Surgical Histo: LEFT ANKLE SX, BILAT ELBOW SX, ADDENOIDECTOMY, CYST REMOVAL BILAT ARMPITS (MAYNOR GRAVES APRN) Alcohol Use: Occasionally Drug Use: Marijuana (MAYNOR GRAVES APRN) Adult General Chief Complaint Chief Complaint: EARACHE/EAR PAIN HPI HPI Patient is a 39 year old female that presents with left ear pain and ongoing for 5 days. She rates her pain as 8 out of 10 in severity and sharp. (MAYNOR GRAVES APRN) Review of Systems Review of Systems Constitutional: Denies fever or chills [] Eyes: Denies change in visual acuity, redness, or eye pain [] HENT: Reports bilateral ear pain. Respiratory: Denies cough or shortness of breath [] Cardiovascular: No additional information not addressed in HPI [] GI: Denies abdominal pain, nausea, vomiting, bloody stools or diarrhea [] : Denies dysuria or hematuria [] Musculoskeletal: Denies back pain or joint pain [] Integument: Denies rash or skin lesions [] Neurologic: Denies headache, focal weakness or sensory changes [] Endocrine: Denies polyuria or polydipsia [] Complete systems were reviewed and found to be within normal limits, except as documented in this note. (MAYNOR GRAVES APRN) Current Medications Current Medications Current Medications Medications (Trade) Dose Ordered Sig/Dwayne Start Time Stop Time Status Last Admin Dose Admin Clindamycin HCl (Cleocin) 300 mg 1X ONCE 04/22/19 20:15 04/22/19 20:16 DC 04/22/19 20:22 300 MG (DEYSI ALFARO MD) Allergies Allergies Allergies Coded Allergies Type Severity Reaction Last Updated Verified Cephalexin Monohydrate Allergy Intermediate Itching 04/14/17 Yes amoxicillin Allergy Intermediate 05/21/18 Yes latex Allergy Intermediate Itching 04/14/17 Yes oxycodone Allergy Intermediate 04/17/17 Yes Penicillins Allergy Mild Itching 04/14/17 Yes (DEYSI ALFARO MD) Physical Exam Physical Exam Constitutional: Well developed, well nourished, no acute distress, non-toxic appearance. [] HENT: Normocephalic, atraumatic, bilateral external ears normal, bilateral tympanic membranes are bulging and erythematous, oropharynx moist, no oral exudates, nose normal. [] Eyes: PERRLA, EOMI, conjunctiva normal, no discharge. [] Neck: Normal range of motion, no tenderness, supple, no stridor. [] Cardiovascular:Heart rate regular rhythm, no murmur [] Lungs & Thorax: Bilateral breath sounds clear to auscultation [] Abdomen: Bowel sounds normal, soft, no tenderness, no masses, no pulsatile masses. [] Skin: Warm, dry, no erythema, no rash. [] Back: No tenderness, no CVA tenderness. [] Extremities: No tenderness, no cyanosis, no clubbing, ROM intact, no edema. [] Neurologic: Alert and oriented X 3, normal motor function, normal sensory function, no focal deficits noted. [] Psychologic: Affect normal, judgement normal, mood normal. [] (MAYNOR GRAVES APRN) Current Patient Data Vital Signs Vital Signs Date Time Temp Pulse Resp B/P (MAP) Pulse Ox O2 Delivery O2 Flow Rate FiO2 04/22/19 19:07 98.4 95 20 142/98 (113) 94 Room Air 98.4 (DEYSI ALFARO MD) Lab Values Laboratory Tests Test 04/22/19 19:13 Glucose (Fingerstick) 186 mg/dL (70-99) H (DEYSI ALFARO MD) EKG EKG [] (MAYNOR GRAVES APRN) Radiology/Procedures Radiology/Procedures [] (MAYNOR GRAVES APRN) Course & Med Decision Making Course & Med Decision Making Pertinent Labs and Imaging studies reviewed. (See chart for details) Patient has bilateral otitis media. Will treat with Clindamycin as patient is allergic to PCN and Cephlasporins. (MAYNOR GRAVES APRN) Course & Med Decision Making Staff Physician Addendum: I was working in the ER during the course of this patient's visit. I was available for consultation as needed, but I was not directly involved in the care of this patient. (DEYSI ALFARO MD) Dragon Disclaimer Dragon Disclaimer This electronic medical record was generated, in whole or in part, using a voice recognition dictation system. (MAYNOR GRAVES APRN) Departure Departure Impression: Primary Impression: Acute otitis media, bilateral Disposition: 01 HOME, SELF-CARE Condition: STABLE Referrals: JOANA MI MD (PCP) Patient Instructions: Otitis Media, Adult Additional Instructions: Thank you for visiting [facility]. We appreciate you trusting us with your care. If any additional problems come up don't hesitate to return to visit us. Please follow up with your primary care provider so they can plan additional care if needed and know about the problem that you had. If symptoms worsen come back to the Emergency Department. Any concerning symptoms that start such as chest pain, shortness of air, weakness or numbness on one side of the body, running high fevers or any other concerning symptoms return to the ER. Please be aware that diabetes can cause your sugars to fluctuate while you are sick. This can cause additional issues. Please check your sugars often to ensure they are staying in a safe range and if you are on insulin please take as instructed by your primary care doctor. If you have any questions about this please let us know or contact your primary care provider for additional instruction about taking your insulin while you are sick. If you get concerned regarding your sugar while at home please do not hesitate to come back to the ER. You have been prescribed an antibiotic today to help fight your infection. Please take all of the antibiotic as directed. If after 48 hours the infection is not improving, please return for more care. If the infection worsens, return to ER for additional care. Scripts Clindamycin Hcl (CLINDAMYCIN HCL) 300 Mg Capsule 1 CAP PO TID for 10 Days, #30 CAP Prov: MAYNOR GRAVES APRN 04/22/19 MAYNOR GRAVES APRN Apr 22, 2019 19:38 DEYSI ALFARO MD Apr 22, 2019 23:10
[2019-04-22] MEDS ORDERED: CLINDAMYCIN HCL 150 MG CAPSULE. PO ONE (20:15)
== END 2019-04-22 20:23 | disposition home or self-care (01) ==
LOC: ER 18:52
DX: H66.93 Otitis media, unspecified, bilateral (principal); J45.909 Unspecified asthma, uncomplicated; I10 Essential (primary) hypertension; E11.8 Type 2 diabetes mellitus with unspecified complications; E05.90 Thyrotoxicosis, unspecified without thyrotoxic crisis or storm; Z98.51 Tubal ligation status; Z90.49 Acquired absence of other specified parts of digestive tract; Z90.89 Acquired absence of other organs; F12.90 Cannabis use, unspecified, uncomplicated; Z88.0 Allergy status to penicillin; Z88.1 Allergy status to other antibiotic agents; Z88.8 Allergy status to other drugs, medicaments and biological substances
CPT/HCPCS: 82962; 99283

== ENCOUNTER 2019-08-28 16:49 | Emergency (ER) | payer SELFPAY ==
[~2019-08-28] VITALS: Ht 172.7 cm; Wt 78.1 kg
[2019-08-28 18:06] VITALS: BP 142/63
[2019-08-28 18:58] LABS: BASO # 0.1 x10^3/uL (0.0-0.2); BASO % 1 % (0-3); EOS # 0.1 x10^3/uL (0.0-0.7); EOS % 1 % (0-3); HEMATOCRIT 39.7 % (36.0-47.0); LYMPH # 3.6 x10^3/uL (1.0-4.8); LYMPH % 37 % (24-48); MEAN CORPUSCULAR HEMOGLOBIN 28 pg (25-35); MEAN CORPUSCULAR HGB CONC 33 g/dL (31-37); MEAN CORPUSCULAR VOLUME 84 fL (79-100); MONO # 0.6 x10^3/uL (0.0-1.1); MONO % 6 % (0-9); NEUT # 5.4 x10^3/uL (1.8-7.7); NEUT % 55 % (31-73); PLATELET COUNT 216 x10^3/uL (140-400); RED BLOOD COUNT 4.71 x10^6/uL (3.50-5.40); RED CELL DISTRIBUTION WIDTH 14.2 % (11.5-14.5); WHITE BLOOD COUNT 9.7 x10^3/uL (4.0-11.0)
[2019-08-28 19:19] LABS: BILIRUBIN,URINE NEGATIVE (NEG); CLARITY,URINE CLEAR; COLOR,URINE YELLOW; NITRITE,URINE NEGATIVE (NEG); PH,URINE 6.5 (<5.0-8.0); PROTEIN,URINE NEGATIVE (NEG-TRACE); UROBILINOGEN,URINE 0.2 mg/dL (0.2 mg/dL)
[2019-08-28 19:27] LABS: BARBITURATES NEG (NEG); BENZODIAZEPINES NEG (NEG); CANNABINOIDS POS (NEG); COCAINE POS (NEG); METHADONE NEG (NEG); OPIATES NEG (NEG); PHENCYCLIDINE POS (NEG)
[2019-08-28 19:28] LABS: AMPHETAMINE/METHAMPHETAMINE NEG (NEG); BACTERIA,URINE FEW /HPF (0-FEW); RBC,URINE 0 /HPF (0-2); SQUAMOUS EPITHELIAL CELL,UR MANY /LPF; WBC,URINE OCC /HPF (0-4)
[2019-08-28 20:00] LABS: CALCIUM 9.4 mg/dL (8.5-10.1); CREATININE 0.9 mg/dL (0.6-1.0); GFR 85.2; POTASSIUM 3.7 mmol/L (3.5-5.1)
[2019-08-28 20:05] LABS: ALBUMIN 3.9 g/dL (3.4-5.0); ALBUMIN/GLOBULIN RATIO 1.1 (1.0-1.7); TOTAL BILIRUBIN 0.2 mg/dL (0.2-1.0); TOTAL PROTEIN 7.3 g/dL (6.4-8.2)
[2019-08-28] MEDS ORDERED: KETOROLAC 15 MG/ML VIAL. ONE (20:25)
--- NOTE | 2019-08-28 20:26 | PHYS DOC ---
Past Medical History Past Medical History: Asthma, Diabetes-Type II, Hypertension, Hyperthyroid, Sciatica Additional Past Medical Histor: ESOPHAGEAL POLYPS, OVARIAN CYST, STOMACH ULCER Past Surgical History: Cholecystectomy, Tonsillectomy, Tubal ligation Additional Past Surgical Histo: LEFT ANKLE SX, BILAT ELBOW SX, ADDENOIDECTOMY, CYST REMOVAL BILAT ARMPITS Smoking Status: Never Smoker Alcohol Use: Occasionally Drug Use: Marijuana Adult General Chief Complaint Chief Complaint: BACK PAIN OR INJURY HPI HPI Patient is a 39 year old AA female who presents to the emergency department with complaints of a sore throat and mid to lower back pain that is chronic. Patient states she has had ongoing problems with back pain since 2017, she denies any new injury or fall. Patient denies any dysuria, hematuria, increased urinary frequency, abdominal pain, nausea, vomiting, diarrhea, or fever. She denies any fever, cough, shortness of breath, chest pain, or palpitations. Patient states that she was recently seen at [facility] for her back pain where she received Toradol and her symptoms improved. She currently rates her pain a 10 out of 10 on pain scale she denies any alleviating factors, the pain is worse when she is weightbearing and moving. Review of Systems Review of Systems Complete ROS is negative unless otherwise noted in HPI. Current Medications Current Medications Current Medications Medications (Trade) Dose Ordered Sig/Dwayne Start Time Stop Time Status Last Admin Dose Admin Acetaminophen (Tylenol) 1,000 mg 1X ONCE 08/28/19 20:30 08/28/19 20:31 DC 08/28/19 20:31 1,000 MG Ketorolac Tromethamine (Toradol 15mg Vial) 15 mg STK-MED ONCE 08/28/19 20:25 08/28/19 20:26 DC Allergies Allergies Allergies Coded Allergies Type Severity Reaction Last Updated Verified Cephalexin Monohydrate Allergy Intermediate Itching 04/14/17 Yes amoxicillin Allergy Intermediate 05/21/18 Yes latex Allergy Intermediate Itching 04/14/17 Yes oxycodone Allergy Intermediate 04/17/17 Yes Penicillins Allergy Mild Itching 04/14/17 Yes Physical Exam Physical Exam See Above Constitutional: Well developed, well nourished, no acute distress, non-toxic appearance. [] HENT: Normocephalic, atraumatic, bilateral external ears normal, mild erythema posterior pharynx, moist mucous membranes, nose normal. [] Eyes: PERRLA, EOMI, conjunctiva normal, no discharge. [] Neck: Normal range of motion, no stridor. [] Cardiovascular:Heart rate regular rhythm Lungs & Thorax: Bilateral breath sounds clear to auscultation, Respirations even and unlabored, no retractions, no respiratory distress [] Skin: Warm, dry, no erythema, no rash. [] Back: No bony tenderness or deformity. [] Extremities: No cyanosis, ROM intact, no edema. [] Neurologic: Alert and oriented X 3, no focal deficits noted. [] Psychologic: Affect normal, judgement normal, mood normal. [] Current Patient Data Vital Signs Vital Signs Date Time Temp Pulse Resp B/P (MAP) Pulse Ox O2 Delivery O2 Flow Rate FiO2 08/28/19 18:06 98.2 87 16 142/63 (89) 98 Room Air 98.2 Lab Values Laboratory Tests Test 08/28/19 18:19 08/28/19 18:45 08/28/19 18:50 08/28/19 19:10 Glucose (Fingerstick) 49 mg/dL (70-99) L Sodium Level 142 mmol/L (136-145) Potassium Level 3.7 mmol/L (3.5-5.1) Chloride Level 102 mmol/L (98-107) Carbon Dioxide Level 29 mmol/L (21-32) Anion Gap 11 (6-14) Blood Urea Nitrogen 25 mg/dL (7-20) H Creatinine 0.9 mg/dL (0.6-1.0) Estimated GFR (Cockcroft-Gault) 85.2 BUN/Creatinine Ratio 28 (6-20) H Glucose Level 125 mg/dL (70-99) H Calcium Level 9.4 mg/dL (8.5-10.1) Total Bilirubin 0.2 mg/dL (0.2-1.0) Aspartate Amino Transferase (AST) 15 U/L (15-37) Alanine Aminotransferase (ALT) 26 U/L (14-59) Alkaline Phosphatase 76 U/L (46-116) Total Protein 7.3 g/dL (6.4-8.2) Albumin 3.9 g/dL (3.4-5.0) Albumin/Globulin Ratio 1.1 (1.0-1.7) White Blood Count 9.7 x10^3/uL (4.0-11.0) Red Blood Count 4.71 x10^6/uL (3.50-5.40) Hemoglobin 13.0 g/dL (12.0-15.5) Hematocrit 39.7 % (36.0-47.0) Mean Corpuscular Volume 84 fL (79-100) Mean Corpuscular Hemoglobin 28 pg (25-35) Mean Corpuscular Hemoglobin Concent 33 g/dL (31-37) Red Cell Distribution Width 14.2 % (11.5-14.5) Platelet Count 216 x10^3/uL (140-400) Neutrophils (%) (Auto) 55 % (31-73) Lymphocytes (%) (Auto) 37 % (24-48) Monocytes (%) (Auto) 6 % (0-9) Eosinophils (%) (Auto) 1 % (0-3) Basophils (%) (Auto) 1 % (0-3) Neutrophils # (Auto) 5.4 x10^3/uL (1.8-7.7) Lymphocytes # (Auto) 3.6 x10^3/uL (1.0-4.8) Monocytes # (Auto) 0.6 x10^3/uL (0.0-1.1) Eosinophils # (Auto) 0.1 x10^3/uL (0.0-0.7) Basophils # (Auto) 0.1 x10^3/uL (0.0-0.2) Urine Collection Type Unknown Urine Color Yellow Urine Clarity Clear Urine pH 6.5 (<5.0-8.0) Urine Specific [place] >=1.030 (1.000-1.030) Urine Protein Negative mg/dL (NEG-TRACE) Urine Glucose (UA) Negative mg/dL (NEG) Urine Ketones (Stick) Negative mg/dL (NEG) Urine Blood Negative (NEG) Urine Nitrite Negative (NEG) Urine Bilirubin Negative (NEG) Urine Urobilinogen Dipstick 0.2 mg/dL (0.2 mg/dL) Urine Leukocyte Esterase Negative (NEG) Urine RBC 0 /HPF (0-2) Urine WBC Occ /HPF (0-4) Urine Squamous Epithelial Cells Many /LPF Urine Bacteria Few /HPF (0-FEW) Urine Mucus Marked /LPF Urine Opiates Screen Neg (NEG) Urine Methadone Screen Neg (NEG) Urine Barbiturates Neg (NEG) Urine Phencyclidine Screen Pos (NEG) Urine Amphetamine/Methamphetamine Neg (NEG) Urine Benzodiazepines Screen Neg (NEG) Urine Cocaine Screen Pos (NEG) Urine Cannabinoids Screen Pos (NEG) Urine Ethyl Alcohol Neg (NEG) Laboratory Tests 08/28/19 18:50 Laboratory Tests 08/28/19 18:45 EKG EKG [] Radiology/Procedures Radiology/Procedures [] Course & Med Decision Making Course & Med Decision Making Pertinent Labs and Imaging studies reviewed. (See chart for details) Patient is a 39-year-old female who presented to the emergency room with complaints of chronic back pain exacerbation and a sore throat. Rapid strep was negative. Patient was given a gram of Tylenol and 15 mg of IM Toradol for relief of her back pain. Patient's urine drug screen came back positive for PCP, marijuana, and cocaine. Her CBC was unremarkable, CMP revealed elevated BUN of 25, and elevated BUN/creatinine ratio 28, patient's blood glucose on arrival was 49 she was given a meal tray and juice her blood glucose with labs was 125; urinalysis was not concerning for a urinary tract infection, was negative for the presence of glucose. Patient was discharged home, she was encouraged to take Tylenol or ibuprofen as needed for her back pain and to follow-up with her primary care doctor, return to the ER if symptoms worsen or she develops a fever. Patient verbalized an understanding of home care, medications, follow-up, and return to ED instructions and was in agreement with the plan of care. [] Dragon Disclaimer Dragon Disclaimer This electronic medical record was generated, in whole or in part, using a voice recognition dictation system. Departure Departure Impression: Primary Impression: Chronic back pain Disposition: HOME, SELF-CARE Condition: STABLE Referrals: NO PCP (PCP) Patient Instructions: Back Pain, Adult Additional Instructions: Take tylenol or ibuprofen as needed for pain. Follow up with your primary care doctor this week. Return to the ER if you develop a fever or worsening symptoms. Problem Qualifiers Primary Impression: Chronic back pain Back pain location: low back pain Back pain laterality: unspecified Sciatica presence: unspecified whether sciatica present Qualified Codes: M54.5 - Low back pain; G89.29 - Other chronic pain MIRZA PARKER APRN Aug 28, 2019:26
[2019-08-28] MEDS ORDERED: KETOROLAC 15 MG/ML VIAL. IV ONE (20:30)
[2019-08-28] MEDS ORDERED: ACETAMINOPHEN 500 MG TABLET PO ONE (20:30)
== END 2019-08-28 20:37 | disposition home or self-care (01) ==
LOC: ER 16:49
DX: G89.29 Other chronic pain (principal); M54.5 Low back pain; J02.9 Acute pharyngitis, unspecified; J45.909 Unspecified asthma, uncomplicated; E11.9 Type 2 diabetes mellitus without complications; I10 Essential (primary) hypertension; Z90.49 Acquired absence of other specified parts of digestive tract; Z98.51 Tubal ligation status; Z88.0 Allergy status to penicillin; Z88.1 Allergy status to other antibiotic agents; Z88.5 Allergy status to narcotic agent; Z91.040 Latex allergy status
CPT/HCPCS: 36415; 80053; 80307; 81001; 82962; 85025; 87070; 87880; 96374; 99283; J1885

== ENCOUNTER 2019-09-15 19:18 | Emergency (ER) | payer SELFPAY ==
[~2019-09-15] VITALS: Ht 170.2 cm; Wt 72.0 kg
[2019-09-15 19:25] VITALS: BP 142/63
[2019-09-15] MEDS ORDERED: CYCL10TA2 PO (19:34)
[2019-09-15] MEDS ORDERED: HYDR-3164 PO (19:34)
--- NOTE | 2019-09-15 19:35 | PHYS DOC ---
Past Medical History Past Medical History: Asthma, Diabetes-Type II, Hypertension, Hyperthyroid, Sciatica Additional Past Medical Histor: ESOPHAGEAL POLYPS, OVARIAN CYST, STOMACH ULCER Past Surgical History: Cholecystectomy, Tonsillectomy, Tubal ligation Additional Past Surgical Histo: LEFT ANKLE SX, BILAT ELBOW SX, ADDENOIDECTOMY, CYST REMOVAL BILAT ARMPITS Smoking Status: Never Smoker Alcohol Use: Occasionally Drug Use: Marijuana Adult General Chief Complaint Chief Complaint: MULTIPLE COMPLAINTS HPI HPI Patient is a 39-year-old female who presents with a couple of different complaints. First she has noticed some swelling in her left eyelid. She denies any visual loss. She states she has been using some warm compresses on the area. She also complains of back pain. She states she has chronic back pain. She states the pain starts in her upper back and goes under her shoulder blades down to her low back and it radiates into her hips. She states the pain is severe and made worse with any movement especially flexion and extension. She denies any dysuria or gross hematuria. She denies any fever chills or sweats. She has not had any new injury.[] Review of Systems Review of Systems Constitutional: Denies fever or chills [] Eyes: Left upper eyelid[] HENT: Denies nasal congestion or sore throat [] Respiratory: Denies cough or shortness of breath [] Cardiovascular: No additional information not addressed in HPI [] GI: Denies abdominal pain, nausea, vomiting, bloody stools or diarrhea [] : Denies dysuria or hematuria [] Musculoskeletal: Reports back pain[] Integument: Denies rash or skin lesions [] Neurologic: Denies headache, focal weakness or sensory changes [] Endocrine: Denies polyuria or polydipsia [] All other systems were reviewed and found to be within normal limits, except as documented in this note. Allergies Allergies Allergies Coded Allergies Type Severity Reaction Last Updated Verified Cephalexin Monohydrate Allergy Intermediate Itching 04/14/17 Yes amoxicillin Allergy Intermediate 05/21/18 Yes latex Allergy Intermediate Itching 04/14/17 Yes oxycodone Allergy Intermediate 04/17/17 Yes Penicillins Allergy Mild Itching 04/14/17 Yes Physical Exam Physical Exam Constitutional: Well developed, well nourished, mild distress, non-toxic appearance. [] HENT: Normocephalic, atraumatic, bilateral external ears normal, oropharynx moist, no oral exudates, nose normal. [] Eyes: There is a small stye in the left lateral upper eyelid[] Neck: Normal range of motion, no tenderness, supple, no stridor. [] Cardiovascular:Heart rate regular rhythm, no murmur [] Lungs & Thorax: Bilateral breath sounds clear to auscultation [] Abdomen: Bowel sounds normal, soft, no tenderness, no masses, no pulsatile masses. [] Skin: Warm, dry, no erythema, no rash. [] Back: Patient has some midthoracic to lower lumbar paraspinal muscle spasm right greater than left. [] Extremities: No tenderness, no cyanosis, no clubbing, ROM intact, no edema. [] Neurologic: Alert and oriented X 3, normal motor function, normal sensory function, no focal deficits noted. [] Psychologic: Affect normal, judgement normal, mood normal. [] EKG EKG [] Radiology/Procedures Radiology/Procedures [] Course & Med Decision Making Course & Med Decision Making Pertinent Labs and Imaging studies reviewed. (See chart for details) [] Dragon Disclaimer Dragon Disclaimer This electronic medical record was generated, in whole or in part, using a voice recognition dictation system. Departure Departure Impression: Primary Impression: Hordeolum externum (stye) Additional Impression: Chronic back pain Disposition: 01 HOME, SELF-CARE Condition: STABLE Referrals: NO PCP (PCP) Patient Instructions: Back Pain, Adult, Chronic Back Pain, Sty Additional Instructions: Return to the emergency department with any new or concerning symptoms Scripts Hydrocodone/Apap 5-325 (NORCO 5-325 TABLET) 1 Each Tablet 1 TAB PO PRN Q6HRS PRN for PAIN, #10 TAB 0 Refills Prov: SHAMAR SAXENA DO 09/15/19 Cyclobenzaprine Hcl (CYCLOBENZAPRINE HCL) 10 Mg Tablet 1 TAB PO TID PRN for MUSCLE PAIN, #30 TAB Prov: SHAMAR SAXENA DO 420 Problem Qualifiers Primary Impression: Hordeolum externum (stye) Laterality: left Eyelid: upper Qualified Codes: H00.014 - Hordeolum externum left upper eyelid Additional Impression: Chronic back pain Back pain location: low back pain Back pain laterality: bilateral Sciatica presence: without sciatica Qualified Codes: M54.5 - Low back pain; G89.29 - Other chronic pain SHAMAR SAXENA DO Sep 15, 2019 19:34
[2019-09-15] MEDS: KETOROLAC 60 MG/2 ML VIAL. IM ONE (19:43)
[2019-09-15] MEDS: ORPHENADRINE CITRATE 60 MG/2 ML VIAL. IM ONE (19:43)
== END 2019-09-15 20:00 | disposition home or self-care (01) ==
LOC: ER 19:18
DX: H00.014 Hordeolum externum left upper eyelid (principal); G89.29 Other chronic pain; M54.6 Pain in thoracic spine; R60.0 Localized edema; J45.909 Unspecified asthma, uncomplicated; E11.9 Type 2 diabetes mellitus without complications; I10 Essential (primary) hypertension; E03.9 Hypothyroidism, unspecified; F12.90 Cannabis use, unspecified, uncomplicated; Z90.49 Acquired absence of other specified parts of digestive tract; Z90.89 Acquired absence of other organs; Z98.890 Other specified postprocedural states; Z88.0 Allergy status to penicillin; Z88.1 Allergy status to other antibiotic agents; Z91.040 Latex allergy status; Z88.5 Allergy status to narcotic agent
CPT/HCPCS: 96372; 99284; J1885; J2360

== ENCOUNTER 2019-09-28 03:52 | Emergency (ER) | payer SELFPAY ==
[~2019-09-28] VITALS: Ht 170.2 cm; Wt 88.6 kg
--- NOTE | 2019-09-28 04:08 | PHYS DOC ---
Past Medical History Past Medical History: Asthma, Diabetes-Type II, Hypertension, Hyperthyroid, Sciatica Additional Past Medical Histor: ESOPHAGEAL POLYPS, OVARIAN CYST, STOMACH ULCER Past Surgical History: Cholecystectomy, Tonsillectomy, Tubal ligation Additional Past Surgical Histo: LEFT ANKLE SX, BILAT ELBOW SX, ADDENOIDECTOMY, CYST REMOVAL BILAT ARMPITS Smoking Status: Never Smoker Alcohol Use: Occasionally Drug Use: Marijuana General Adult EDM: Chief Complaint: BACK PAIN - NO INJURY HPI: HPI: Patient is a 39 year old female who presents with complaint of right-sided lower back pain that started 3 or 4 days ago. Patient arrives via EMS and EMS states the patient was standing outside of her home, awaiting their arrival with no apparent distress. EMS states that she was walking around without difficulty until they started to move her to the truck when she started to moan and states she was having severe pain. Patient denies any recent injuries. She states the pain is in the right lower back, extending into her right buttock. She rates pain as severe. Patient states that pain is worsened with movement.[] Review of Systems: Review of Systems: Constitutional: Denies fever or chills. [] Respiratory: Denies cough or shortness of breath. [] Cardiovascular: Denies chest pain or edema. [] GI: Denies abdominal pain, nausea, vomiting or diarrhea. [] Musculoskeletal: Complains of lower back pain. [] Integument: Denies rash. [] Neurologic: Denies headache, focal weakness or sensory changes. [] Heart Score: Risk Factors: Risk Factors: DM, Current or recent (<one month) smoker, HTN, HLP, family history of CAD, obesity. Risk Scores: Score 0 - 3: 2.5% MACE over next 6 weeks - Discharge Home Score 4 - 6: 20.3% MACE over next 6 weeks - Admit for Clinical Observation Score 7 - 10: 72.7% MACE over next 6 weeks - Early Invasive Strategies Allergies: Allergies: Allergies Coded Allergies Type Severity Reaction Last Updated Verified Cephalexin Monohydrate Allergy Intermediate Itching 04/14/17 Yes amoxicillin Allergy Intermediate 05/21/18 Yes latex Allergy Intermediate Itching 04/14/17 Yes oxycodone Allergy Intermediate 04/17/17 Yes Penicillins Allergy Mild Itching 04/14/17 Yes Physical Exam: PE: Constitutional: Well developed, well nourished, no acute distress, non-toxic appearance. [] HENT: Normocephalic, atraumatic, bilateral external ears normal, oropharynx moist, no oral exudates, nose normal. [] Eyes: PERRLA, EOMI, conjunctiva normal, no discharge. [] Neck: Normal range of motion, no tenderness, supple. [] Cardiovascular: Regular rate and rhythm[] Lungs & Thorax: Bilateral breath sounds clear to auscultation [] Abdomen: Bowel sounds normal, soft, no tenderness. [] Skin: Warm, dry, no erythema, no rash. [] Back: There is reported tenderness to palpation in the right lumbar paraspinal musculature without palpable spasm. [] Neurologic: Alert and oriented X 3, no focal deficits noted. [] EKG: EKG: [] Radiology/Procedures: Radiology/Procedures: [] Course & Med Decision Making: Course & Med Decision Making Pertinent Labs and Imaging studies reviewed. (See chart for details) [] Dragon Disclaimer: Dragon Disclaimer: This electronic medical record was generated, in whole or in part, using a voice recognition dictation system. Departure Departure Impression: Primary Impression: Low back pain Qualified Codes: M54.5 - Low back pain Disposition: 07 AGAINST MEDICAL ADVICE (a medical screening examination has been performed and patient has been deemed to have no medical emergency. Patient has elected to follow up as an outpatient in lieu of paying copay.) Condition: STABLE Referrals: NO PCP (PCP) TAPAN KELLOGG Jr. DO Sep 28, 2019 04:08
[2019-09-28 04:25] VITALS: BP 160/89
== END 2019-09-28 04:40 | disposition left against medical advice (07) ==
LOC: ER 03:52
DX: M54.40 Lumbago with sciatica, unspecified side (principal); E11.9 Type 2 diabetes mellitus without complications; I10 Essential (primary) hypertension; E03.9 Hypothyroidism, unspecified; J45.909 Unspecified asthma, uncomplicated; Z88.0 Allergy status to penicillin; Z88.1 Allergy status to other antibiotic agents; Z88.5 Allergy status to narcotic agent; Z91.040 Latex allergy status
CPT/HCPCS: 99283

== ENCOUNTER 2020-06-08 20:52 | Emergency (ER) | payer SELFPAY ==
[~2020-06-08] VITALS: Ht 170.2 cm; Wt 88.6 kg
[~2020-06-08 20:52] MED LIST changes: -CLIN300C8 PO; +CLIN300C9 PO; -PREG25CA PO; +PREG25CA41 PO
[2020-06-08 21:20] VITALS: BP 153/86
[2020-06-08] MEDS ORDERED: CYCLOBENZAPRINE 10 MG TABLET. PO ONE (23:00)
[2020-06-08] MEDS ORDERED: KETOROLAC 60 MG/2 ML VIAL. IM ONE (23:00)
[2020-06-08] MEDS ORDERED: HYDROcodone/APAP 5/325MG 1 TAB TABLET PO ONE (23:00)
[2020-06-09] MEDS ORDERED: CYCL10TA2 PO (00:08)
--- NOTE | 2020-06-09 00:09 | PHYS DOC ---
Past Medical History Past Medical History: Asthma, Bronchitis, Diabetes-Type II, Hypertension, Hyperthyroid, Sciatica Additional Past Medical Histor: ESOPHAGEAL POLYPS, OVARIAN CYST, STOMACH ULCER Past Surgical History: Cholecystectomy, Tonsillectomy, Tubal ligation Additional Past Surgical Histo: LEFT ANKLE SX, BILAT ELBOW SX, ADDENOIDECTOMY, CYST REMOVAL BILAT ARMPITS Smoking Status: Never Smoker Alcohol Use: None Drug Use: Marijuana General Adult EDM: Chief Complaint: UPPER EXTREMITY PAIN HPI: HPI: Patient is a 40 year old female presents emergency department complaining of left upper extremity pain for the past 2 days. 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 Patient believes she might of strained her arm due to patient care. Patient denies any numbness or tingling to her extremity. Patient denies any nausea vomiting diarrhea, cough, congestion, shortness of breath, chest pains, or chest palpitations. Patient denies any recent fever or chills, patient denies any other physical elements or physical complaints. Patient reports her last menstrual period was approximately 10 days ago. Review of Systems: Review of Systems: 14 body systems of review of systems have been reviewed. See HPI for pertinent positives and negative responses, otherwise all other systems are negative, nonpertinent or noncontributory. Heart Score: Risk Factors: Risk Factors: DM, Current or recent (<one month) smoker, HTN, HLP, family history of CAD, obesity. Risk Scores: Score 0 - 3: 2.5% MACE over next 6 weeks - Discharge Home Score 4 - 6: 20.3% MACE over next 6 weeks - Admit for Clinical Observation Score 7 - 10: 72.7% MACE over next 6 weeks - Early Invasive Strategies Current Medications: Patient denies taking any home prescription medications at this time. Current Medications Medications (Trade) Dose Ordered Sig/[facility] Start Time Stop Time Status Last Admin Dose Admin Acetaminophen/ Hydrocodone Bitart (Lortab 5/325) 2 tab 1X ONCE 06/08/20 23:00 06/08/20 23:01 DC 06/08/20 23:21 2 TAB Cyclobenzaprine HCl (Flexeril) 10 mg 1X ONCE 06/08/20 23:00 06/08/20 23:01 DC 06/08/20 23:21 10 MG Ketorolac Tromethamine (Toradol Im) 60 mg 1X ONCE 06/08/20 23:00 06/08/20 23:01 DC 06/08/20 23:22 60 MG Allergies: Allergies: Allergies Coded Allergies Type Severity Reaction Last Updated Verified Cephalexin Monohydrate Allergy Intermediate Itching 04/14/17 Yes amoxicillin Allergy Intermediate 05/21/18 Yes latex Allergy Intermediate Itching 04/14/17 Yes oxycodone Allergy Intermediate 04/17/17 Yes Penicillins Allergy Mild Itching 04/14/17 Yes Physical Exam: PE: Constitutional: Well developed, well nourished, no acute distress, non-toxic appearance. HENT: Normocephalic, atraumatic, bilateral external ears normal, oropharynx mo ist, no oral exudates, nose normal. Eyes: PERRLA, EOMI, conjunctiva normal, no discharge. Neck: Normal range of motion, no tenderness, supple, no stridor. Cardiovascular:Heart rate regular rhythm, no murmur Lungs & Thorax: Bilateral breath sounds clear to auscultation Abdomen: Bowel sounds normal, soft, no tenderness, no masses, no pulsatile masses. Skin: Warm, dry, no erythema, no rash. Back: No CVA tenderness. Pain to palpation trapezius muscular area with marked spasm during exam. Extremities: No tenderness, no cyanosis, no clubbing, ROM intact, no edema. Patient's left upper extremity full AROM/PROM, distal cap refill less than 2 seconds, radial pulse 2+. No edema, no swelling, no crepitus noted. Neurologic: Alert and oriented X 3, normal motor function, normal sensory function, no focal deficits noted. Psychologic: Affect normal, judgement normal, mood normal. Current Patient Data: Labs: Laboratory Tests Test 06/08/20 21:26 POC Urine HCG, Qualitative Hcg negative (Negative) Vital Signs: Vital Signs Date Time Temp Pulse Resp B/P (MAP) Pulse Ox O2 Delivery O2 Flow Rate FiO2 06/08/20 23:21 16 98 06/08/20 21:20 98.4 104 153/86 (108) Room Air 98.4 EKG: EKG: [] Radiology/Procedures: Radiology/Procedures: [] Course & Med Decision Making: Course & Med Decision Making Pertinent Labs and Imaging studies reviewed. (See chart for details) 5-year-old female presents emergency department, physical examination consistent with previous muscle strain. Patient treated emergency department with IM Toradol, p.o. Flexeril. Patient states that she wants [place] or Percocet or tramadol for at home. Discussed with patient physical examination consistent with muscle strain, it would be inappropriate to give narcotic pain medications for this reason. Patient states that she will not take any NSAIDs, patient is okay with p.o. Flexeril. Will give patient a work excuse for 2 days, prescription for p.o. Flexeril 10 mg. Patient to follow-up with primary care soon, return emergency department for worsening symptoms or other concerns. Patient discharged home. Impression: #1 left upper extremity strain #2 left trapezius strain Dragon Disclaimer: Jim Disclaimer: This electronic medical record was generated, in whole or in part, using a voice recognition dictation system. Departure Departure Impression: Primary Impression: Strain of upper arm, left Qualified Codes: S46.912A - Strain of unspecified muscle, fascia and tendon at shoulder and upper arm level, left arm, initial encounter Additional Impression: Trapezius muscle strain Qualified Codes: S46.812A - Strain of other muscles, fascia and tendons at shoulder and upper arm level, left arm, initial encounter Disposition: 01 DC HOME SELF CARE/HOMELESS Condition: IMPROVED Referrals: NO PCP (PCP) Patient Instructions: Muscle Strain Additional Instructions: Please take prescriptions as directed, follow-up with your doctor for continuing pain. Return to emergency department for worsening symptoms or other concerns EMERGENCY DEPARTMENT GENERAL DISCHARGE INSTRUCTIONS Thank you for coming to [facility] Emergency Department (ED) toda y and trusting us with you care. We trust that you had a positive experience in our Emergency Department. If you wish to speak to the department management, you may call the Director at [phone]. YOUR FOLLOW UP INSTRUCTIONS ARE FOLLOWS: 1. Do you have a private Doctor? If you do not have a private doctor, please ask for a resource list of physicians or clinics that may be able to assist you with follow up care. 2. The Emergency Physicain has interpreted your x-rays. The X-Ray specialist will also review them. If there is a change in the findings, you will be notified in 48 hours when at all possible. 3. A lab test or culture has been done, your results will be reviewed and you will be notified if you need a change in treatment. ADDITIONAL INSTRUCTIONS AND INFORMATION: 1. Your care today has been supervised by a physician who is specially trained in emergency care. Many problems require more than one evaluation for a complete diagnosis and treatment. We recommend that you schedule your follow up appointment as recommended to ensure complete treatment of you illness or injury. If you are unable to obtain follow up care and continue to have a problem, or if your condition worsens, we recommend that you return to the ED. 2. We are not able to safely determine your condition over the phone nor are we able to give sound medical advice over the phone. For these safety reasons, if you call for medical advice we will ask you to come to the ED for further evaluation. 3. If you have any questions regarding these discharge instructions please call the ED at [phone]. SAFETY INFORMATION: In the interest of safety, wellness, and injury prevention; we encourage you to wear your sealbelt, if you smoke; quite smoking, and we encourage family to use a protective helmet for bicycling and other sporting events that present an increased risk for head injury. IF YOUR SYMPTOMS WORSEN OR NEW SYMPTOMS DEVELOP, OR YOU HAVE CONCERNS ABOUT YOUR CONDITION; OR IF YOUR CONDITION WORSENS WHILE YOU ARE WAITING FOR YOUR FOLLOW UP APPOINTMENT; EITHER CONTACT YOUR PRIMARY CARE DOCTOR, THE PHYSICIAN WHOSE NAME AND NUMBER YOU WERE GIVEN, OR RETURN TO THE ED IMMEDIATELY. Scripts Cyclobenzaprine Hcl (CYCLOBENZAPRINE HCL) 10 Mg Tablet 10 MG PO TID, #15 TAB 0 Refills Prov: MAYNOR PERALTA APRN 06/09/20 MAYNOR PERALTA APRN Jun 09, 2020 00:09
== END 2020-06-09 00:20 | disposition home or self-care (01) ==
LOC: ER 20:52
DX: S46.812A Strain of other muscles, fascia and tendons at shoulder and upper arm level, left arm, initial encounter (principal); J45.909 Unspecified asthma, uncomplicated; E11.9 Type 2 diabetes mellitus without complications; I10 Essential (primary) hypertension; E05.90 Thyrotoxicosis, unspecified without thyrotoxic crisis or storm; F12.90 Cannabis use, unspecified, uncomplicated; Z90.89 Acquired absence of other organs; Z90.49 Acquired absence of other specified parts of digestive tract; Z98.51 Tubal ligation status; Z98.890 Other specified postprocedural states; Z88.0 Allergy status to penicillin; Z88.1 Allergy status to other antibiotic agents; Z88.5 Allergy status to narcotic agent; Z91.040 Latex allergy status; Z88.8 Allergy status to other drugs, medicaments and biological substances; X58.XXXA Exposure to other specified factors, initial encounter; Y93.89 Activity, other specified; Y92.89 Other specified places as the place of occurrence of the external cause; Y99.8 Other external cause status
CPT/HCPCS: 81025; 96372; 99283; J1885

== ENCOUNTER 2020-07-11 14:51 | Emergency (ER) | payer SELFPAY ==
[~2020-07-11] VITALS: Ht 170.2 cm; Wt 99.3 kg
[~2020-07-11 14:51] MED LIST changes: -LISI-338 PO; +LISI-517 PO; +NAPR-699 PO; -NAPR250T6 PO
[2020-07-11 16:28] LABS: BILIRUBIN,URINE NEGATIVE (NEG); CLARITY,URINE TURBID; COLOR,URINE YELLOW; NITRITE,URINE NEGATIVE (NEG); PH,URINE 7.5 (<5.0-8.0); PROTEIN,URINE NEGATIVE (NEG-TRACE); UROBILINOGEN,URINE 0.2 mg/dL (0.2 mg/dL)
[2020-07-11 16:35] LABS: BARBITURATES NEG (NEG); BENZODIAZEPINES NEG (NEG); CANNABINOIDS NEG (NEG); COCAINE NEG (NEG); METHADONE NEG (NEG); OPIATES NEG (NEG); PHENCYCLIDINE POS (NEG)
[2020-07-11 16:36] LABS: AMPHETAMINE/METHAMPHETAMINE NEG (NEG)
[2020-07-11 16:41] LABS: BACTERIA,URINE 0 /HPF (0-FEW); RBC,URINE 0 /HPF (0-2); WBC,URINE 0 /HPF (0-4)
[2020-07-11 16:58] LABS: BASO # 0.1 x10^3/uL (0.0-0.2); BASO % 1 % (0-3); EOS # 0.1 x10^3/uL (0.0-0.7); EOS % 1 % (0-3); HEMATOCRIT 37.7 % (36.0-47.0); HEMOGLOBIN 12.4 g/dL (12.0-15.5); LYMPH # 2.2 x10^3/uL (1.0-4.8); LYMPH % 18 % (24-48); MEAN CORPUSCULAR HEMOGLOBIN 27 pg (25-35); MEAN CORPUSCULAR HGB CONC 33 g/dL (31-37); MEAN CORPUSCULAR VOLUME 81 fL (79-100); MONO # 0.8 x10^3/uL (0.0-1.1); MONO % 7 % (0-9); NEUT # 8.9 x10^3/uL (1.8-7.7); NEUT % 73 % (31-73); PLATELET COUNT 232 x10^3/uL (140-400); RED BLOOD COUNT 4.64 x10^6/uL (3.50-5.40); RED CELL DISTRIBUTION WIDTH 14.6 % (11.5-14.5); WHITE BLOOD COUNT 12.2 x10^3/uL (4.0-11.0)
[2020-07-11 17:09] LABS: CALCIUM 9.4 mg/dL (8.5-10.1); CREATININE 0.8 mg/dL (0.6-1.0); GFR 97.1; POTASSIUM 3.6 mmol/L (3.5-5.1)
[2020-07-11 17:15] LABS: ALBUMIN 3.6 g/dL (3.4-5.0); ALBUMIN/GLOBULIN RATIO 0.9 (1.0-1.7); TOTAL BILIRUBIN 0.4 mg/dL (0.2-1.0); TOTAL PROTEIN 7.7 g/dL (6.4-8.2)
[2020-07-11] MEDS ORDERED: IOHEXOL 300 MG/ML 100ML VIAL. IV ONE ×2 (18:15→18:30)
[2020-07-11] MEDS ORDERED: CONTRAST GIVEN. MC PRN ×2 (18:15→18:30)
--- NOTE | 2020-07-11 18:23 | PHYS DOC ---
Past Medical History Past Medical History: Asthma, Bronchitis, Diabetes-Type II, Hypertension, Hyperthyroid, Sciatica Additional Past Medical Histor: ESOPHAGEAL POLYPS, OVARIAN CYST, STOMACH ULCER (CLARA MONTEMAYOR DO) Past Surgical History: Cholecystectomy, Tonsillectomy, Tubal ligation Additional Past Surgical Histo: LEFT ANKLE SX, BILAT ELBOW SX, ADDENOIDECTOMY, CYST REMOVAL BILAT ARMPITS (CLARA MONTEMAYOR DO) Smoking Status: Never Smoker Alcohol Use: None Drug Use: Marijuana (CLARA MONTEMAYOR DO) General Adult EDM: Chief Complaint: FLANK PAIN HPI: HPI: Patient is a 40 year old [f__sex] who presents with [] (CLARA MONTEMAYOR DO) Review of Systems: Review of Systems: Constitutional: Denies fever or chills. [] Eyes: Denies change in visual acuity. [] HENT: Denies nasal congestion or sore throat. [] Respiratory: Denies cough or shortness of breath. [] Cardiovascular: Denies chest pain or edema. [] GI: Denies abdominal pain, nausea, vomiting, bloody stools or diarrhea. [] : Denies dysuria. [] Musculoskeletal: Denies back pain or joint pain. [] Integument: Denies rash. [] Neurologic: Denies headache, focal weakness or sensory changes. [] Endocrine: Denies polyuria or polydipsia. [] Lymphatic: Denies swollen glands. [] Psychiatric: Denies depression or anxiety. [] (CLARA MONTEMAYOR DO) Heart Score: Risk Factors: Risk Factors: DM, Current or recent (<one month) smoker, HTN, HLP, family history of CAD, obesity. Risk Scores: Score 0 - 3: 2.5% MACE over next 6 weeks - Discharge Home Score 4 - 6: 20.3% MACE over next 6 weeks - Admit for Clinical Observation Score 7 - 10: 72.7% MACE over next 6 weeks - Early Invasive Strategies (CLARA MONTEMAYOR DO) Current Medications: Current Medications Medications (Trade) Dose Ordered Sig/[facility] Start Time Stop Time Status Last Admin Dose Admin Info (CONTRAST GIVEN -- Rx MONITORING) 1 each PRN DAILY PRN 07/11/20 18:15 07/13/20 18:14 Iohexol (Omnipaque 300 Mg/ml) 75 ml 1X ONCE 07/11/20 18:30 07/11/20 18:31 UNV (CLARA MONTEMAYOR DO) Allergies: Allergies: Allergies Coded Allergies Type Severity Reaction Last Updated Verified Cephalexin Monohydrate Allergy Intermediate Itching 04/14/17 Yes amoxicillin Allergy Intermediate 05/21/18 Yes latex Allergy Intermediate Itching 04/14/17 Yes oxycodone Allergy Intermediate 04/17/17 Yes Penicillins Allergy Mild Itching 04/14/17 Yes (CLAAR MONTEMAYOR DO) Physical Exam: PE: Constitutional: Well developed, well nourished, no acute distress, non-toxic appearance. HENT: Normocephalic, atraumatic, Eyes: EOMI, conjunctiva normal, no discharge. Neck: Normal range of motion, supple, Cardiovascular: S1/2 present, regular rhythm Lungs & Thorax: Speaking in full sentences, bilateral equal chest rise, no tachypnea or increased work of breathing Abdomen: soft, no tenderness, Skin: Warm, dry, no erythema, no rash. [] Back: No tenderness, no CVA tenderness. [] Extremities: No tenderness, no cyanosis, no edema Neurologic: Alert and oriented X 3, normal motor function, normal sensory functi on, no focal deficits noted. [] Psychologic: Affect normal, judgement normal, mood normal. [] (CLARA MONTEMAYOR DO) Current Patient Data: Labs: Laboratory Tests Test 07/11/20 14:54 07/11/20 16:50 Urine Collection Type Unknown Urine Color Yellow Urine Clarity Turbid Urine pH 7.5 (<5.0-8.0) Urine Specific Hiram <=1.005 (1.000-1.030) Urine Protein Negative mg/dL (NEG-TRACE) Urine Glucose (UA) Negative mg/dL (NEG) Urine Ketones (Stick) Negative mg/dL (NEG) Urine Blood Negative (NEG) Urine Nitrite Negative (NEG) Urine Bilirubin Negative (NEG) Urine Urobilinogen Dipstick 0.2 mg/dL (0.2 mg/dL) Urine Leukocyte Esterase Negative (NEG) Urine RBC 0 /HPF (0-2) Urine WBC 0 /HPF (0-4) Urine Squamous Epithelial Cells Occ /LPF Urine Bacteria 0 /HPF (0-FEW) Urine Mucus Slight /LPF Urine Opiates Screen Neg (NEG) Urine Methadone Screen Neg (NEG) Urine Barbiturates Neg (NEG) Urine Phencyclidine Screen Pos (NEG) Urine Amphetamine/Methamphetamine Neg (NEG) Urine Benzodiazepines Screen Neg (NEG) Urine Cocaine Screen Neg (NEG) Urine Cannabinoids Screen Neg (NEG) Urine Ethyl Alcohol Neg (NEG) White Blood Count 12.2 x10^3/uL (4.0-11.0) H Red Blood Count 4.64 x10^6/uL (3.50-5.40) Hemoglobin 12.4 g/dL (12.0-15.5) Hematocrit 37.7 % (36.0-47.0) Mean Corpuscular Volume 81 fL (79-100) Mean Corpuscular Hemoglobin 27 pg (25-35) Mean Corpuscular Hemoglobin Concent 33 g/dL (31-37) Red Cell Distribution Width 14.6 % (11.5-14.5) H Platelet Count 232 x10^3/uL (140-400) Neutrophils (%) (Auto) 73 % (31-73) Lymphocytes (%) (Auto) 18 % (24-48) L Monocytes (%) (Auto) 7 % (0-9) Eosinophils (%) (Auto) 1 % (0-3) Basophils (%) (Auto) 1 % (0-3) Neutrophils # (Auto) 8.9 x10^3/uL (1.8-7.7) H Lymphocytes # (Auto) 2.2 x10^3/uL (1.0-4.8) Monocytes # (Auto) 0.8 x10^3/uL (0.0-1.1) Eosinophils # (Auto) 0.1 x10^3/uL (0.0-0.7) Basophils # (Auto) 0.1 x10^3/uL (0.0-0.2) Sodium Level 140 mmol/L (136-145) Potassium Level 3.6 mmol/L (3.5-5.1) Chloride Level 106 mmol/L (98-107) Carbon Dioxide Level 26 mmol/L (21-32) Anion Gap 8 (6-14) Blood Urea Nitrogen 18 mg/dL (7-20) Creatinine 0.8 mg/dL (0.6-1.0) Estimated GFR (Cockcroft-Gault) 97.1 BUN/Creatinine Ratio 23 (6-20) H Glucose Level 79 mg/dL (70-99) Calcium Level 9.4 mg/dL (8.5-10.1) Total Bilirubin 0.4 mg/dL (0.2-1.0) Aspartate Amino Transferase (AST) 15 U/L (15-37) Alanine Aminotransferase (ALT) 23 U/L (14-59) Alkaline Phosphatase 90 U/L (46-116) Creatine Kinase 103 U/L (26-192) Total Protein 7.7 g/dL (6.4-8.2) Albumin 3.6 g/dL (3.4-5.0) Albumin/Globulin Ratio 0.9 (1.0-1.7) L Lipase 33 U/L (73-393) L Laboratory Tests 07/11/20 16:50 Laboratory Tests 07/11/20 16:50 Vital Signs: Vital Signs Date Time Temp Pulse Resp B/P (MAP) Pulse Ox O2 Delivery O2 Flow Rate FiO2 07/11/20 15:47 98.6 96 16 149/103 (118) 96 98.6 ([facility],CLARA DO) Labs: Laboratory Tests Test 07/11/20 14:54 07/11/20 16:50 Urine Collection Type Unknown Urine Color Yellow Urine Clarity Turbid Urine pH 7.5 Urine Specific Hiram <=1.005 Urine Protein Negative mg/dL Urine Glucose (UA) Negative mg/dL Urine Ketones (Stick) Negative mg/dL Urine Blood Negative Urine Nitrite Negative Urine Bilirubin Negative Urine Urobilinogen Dipstick 0.2 mg/dL Urine Leukocyte Esterase Negative Urine RBC 0 /HPF Urine WBC 0 /HPF Urine Squamous Epithelial Cells Occ /LPF Urine Bacteria 0 /HPF Urine Mucus Slight /LPF Urine Opiates Screen Neg Urine Methadone Screen Neg Urine Barbiturates Neg Urine Phencyclidine Screen Pos Urine Amphetamine/Methamphetamine Neg Urine Benzodiazepines Screen Neg Urine Cocaine Screen Neg Urine Cannabinoids Screen Neg Urine Ethyl Alcohol Neg White Blood Count 12.2 x10^3/uL Red Blood Count 4.64 x10^6/uL Hemoglobin 12.4 g/dL Hematocrit 37.7 % Mean Corpuscular Volume 81 fL Mean Corpuscular Hemoglobin 27 pg Mean Corpuscular Hemoglobin Concent 33 g/dL Red Cell Distribution Width 14.6 % Platelet Count 232 x10^3/uL Neutrophils (%) (Auto) 73 % Lymphocytes (%) (Auto) 18 % Monocytes (%) (Auto) 7 % Eosinophils (%) (Auto) 1 % Basophils (%) (Auto) 1 % Neutrophils # (Auto) 8.9 x10^3/uL Lymphocytes # (Auto) 2.2 x10^3/uL Monocytes # (Auto) 0.8 x10^3/uL Eosinophils # (Auto) 0.1 x10^3/uL Basophils # (Auto) 0.1 x10^3/uL Sodium Level 140 mmol/L Potassium Level 3.6 mmol/L Chloride Level 106 mmol/L Carbon Dioxide Level 26 mmol/L Anion Gap 8 Blood Urea Nitrogen 18 mg/dL Creatinine 0.8 mg/dL Estimated GFR (Cockcroft-Gault) 97.1 BUN/Creatinine Ratio 23 Glucose Level 79 mg/dL Calcium Level 9.4 mg/dL Total Bilirubin 0.4 mg/dL Aspartate Amino Transf (AST/SGOT) 15 U/L Alanine Aminotransferase (ALT/SGPT) 23 U/L Alkaline Phosphatase 90 U/L Creatine Kinase 103 U/L Total Protein 7.7 g/dL Albumin 3.6 g/dL Albumin/Globulin Ratio 0.9 Lipase 33 U/L Current Medications Medications (Trade) Dose Ordered Sig/[facility] Route PRN Reason Start Time Stop Time Status Last Admin Dose Admin Iohexol (Omnipaque 300 Mg/ml) 75 ml 1X ONCE IV 07/11/20 18:15 07/11/20 18:16 DC 07/11/20 18:24 Info (CONTRAST GIVEN -- Rx MONITORING) 1 each PRN DAILY PRN MC SEE COMMENTS 07/11/20 18:15 07/13/20 18:14 Iohexol (Omnipaque 300 Mg/ml) 75 ml 1X ONCE IV 07/11/20 18:30 07/11/20 18:31 DC Info (CONTRAST GIVEN -- Rx MONITORING) 1 each PRN DAILY PRN MC SEE COMMENTS 07/11/20 18:30 07/13/20 18:29 Ketorolac Tromethamine (Toradol 30mg Vial) 30 mg 1X ONCE IVP 07/11/20 19:45 07/11/20 19:46 DC 07/11/20 20:13 (SOUMYA MEHTA DO) EKG: EKG: [] (CLARA MONTEMAYOR DO) Radiology/Procedures: Radiology/Procedures: [] (CLARA MONTEMAYOR DO) Radiology/Procedures: [facility] [address] [place] [address] IMAGING REPORT Signed PATIENT: GLADYS SANCHEZ MACCOUNT: [id number] : 1980 LOCATION: ER AGE: 40 SEX: F EXAM STATUS: REG ER ORD. PHYSICIAN: CLARA MONTEMAYOR DO REASON: abd pain, h/o pancreatitis, OMNI 300, 75 ML I V PROCEDURE: CT ABD PELV W/ IV CONTRST ONLY EXAM: CT Abdomen and Pelvis with IV contrast INDICATION: Reason: abd pain, h/o pancreatitis, OMNI 300, 75 ML I V / Spl. Instructions: / History: TECHNIQUE: Multi-detector row CT images were acquired from the lung bases through the abdomen and pelvis with the use of IV contrast. Sagittal and coronal images were acquired from the transaxial data. All CT scans performed at this facility utilize dose optimization techniques as appropriate to the exam, including the following: Automated exposure control and adjustment of the mA and/or KV according to patient size (this includes techniques or standardized protocols for targeted exams where dose is indication/reason for exam). IV CONTRAST: Administered ORAL CONTRAST: None COMPARISON: None FINDINGS: LOWER CHEST: Unremarkable LIVER: Mild diffuse fatty infiltration. BILIARY SYSTEM: Gallbladder is surgically absent. Bile ducts are not dilated. PANCREAS: Unremarkable SPLEEN: Unremarkable ADRENALS: Unremarkable KIDNEYS & URETERS: Unremarkable BLADDER: Unremarkable REPRODUCTIVE ORGANS: Retroflexed uterus showing mild prominence of the endometrial stripe to 18 mm and bilateral tubal ligation clips. GASTROINTESTINAL: The stomach, small bowel, and colon are unremarkable. The appendix is normal. MESENTERY/PERITONEUM/RETROPERITONEUM: Unremarkable VASCULAR: Unremarkable LYMPH NODES: No adenopathy OSSEOUS & SOFT TISSUES: Unremarkable IMPRESSION: 1. No acute abdomen or pelvic pathology following previous cholecystectomy and bilateral tubal ligation. 2. Recommend elective clinical follow-up for borderline thickened endometrial stripe. Electronically signed by: Joshua Haley MD (07/11/2020 6:45 PM) [facility] [place]CTATED and SIGNED BY: JOSHUA HALEY MD DATE: 07/11/20 [id number] 0 (SOUMYA MEHTA DO) Course & Med Decision Making: Course & Med Decision Making Pertinent Labs and Imaging studies reviewed. (See chart for details) [] (CLARA MONTEMAYOR DO) Course & Med Decision Making Patient is a 40-year-old female who presented to ER due to left flank pain, her lab work and CT scan her abdomen pelvic did not show any acute problem. Patient was given pain medication in the ER, she will be discharged home, she will need to follow-up with her GI doctor for further evaluation and treatment in an outpatient setting. (SOUMYA MEHTA DO) Dragon Disclaimer: Dragon Disclaimer: This electronic medical record was generated, in whole or in part, using a voice recognition dictation system. (CLARA MONTEMAYOR DO) Departure Departure Impression: Primary Impression: Left flank pain Disposition: 01 DC HOME SELF CARE/HOMELESS Condition: IMPROVED Referrals: NO PCP (PCP) ABAD TAMEZ MD Please call this GI doctor for outpatient for follow up next week. Patient Instructions: Flank Pain Additional Instructions: Thank you for visiting our Emergency Department. We appreciate you trusting us with your care. If any additional problems come up don't hesitate to return to visit us. Please follow up with your primary care provider so they can plan additional care if needed and know about the problem that you had. If symptoms worsen come back to the Emergency Department. Any concerning symptoms that start such as chest pain, shortness of air, weakness or numbness on one side of the body, running high fevers or any other concerning symptoms return to the ER. Scripts Naproxen Sodium (ANAPROX DS) 550 Mg Tablet 1 TAB PO BID PRN for PAIN for 15 Days, #30 TAB 0 Refills Prov: SOUMYA MEHTA DO 07/11/20 Tramadol Hcl (TRAMADOL HCL) 50 Mg Tablet 50 MG PO Q6HRS PRN for PAIN, #15 TAB Prov: SOUMYA MEHTA DO 07/11/20 CLARA MONTEMAYOR DO Jul 11, 2020 18:23 SOUMYA MEHTA DO Jul 11, 2020 20:40
--- NOTE | 2020-07-11 18:49 | RAD ---
EXAM: CT Abdomen and Pelvis with IV contrast INDICATION: Reason: abd pain, h/o pancreatitis, OMNI 300, 75 ML I V / Spl. Instructions: / History: TECHNIQUE: Multi-detector row CT images were acquired from the lung bases through the abdomen and pel vis with the use of IV contrast. Sagittal and coronal images were acquired from the transaxial data. All CT scans performed at this facility utilize dose optimization techniques as appropriate to the ex am, including the following: Automated exposure control and adjustment of the mA and/or KV according to patient size (this includes techniques or standardized protocols for targeted exams where dose is indication/reason for exam). IV CONTRAST: Administered ORAL CONTRAST: None COMPARISON: None FINDINGS: LOWER CHEST: Unremarkable LIVER: Mild diffuse fatty infiltration. BILIARY SYSTEM: Gallbladder is surgically absent. Bile ducts are not dilated. PANCREAS: Unremarkable SPLEEN: Unremarkable ADRENALS: Unremarkable KIDNEYS & URETERS: Unremarkable BLADDER: Unremarkable REPRODUCTIVE ORGANS: Retroflexed uterus showing mild prominence of the endometrial stripe to 18 mm a nd bilateral tubal ligation clips. GASTROINTESTINAL: The stomach, small bowel, and colon are unremarkable. The appendix is normal. MESENTERY/PERITONEUM/RETROPERITONEUM: Unremarkable VASCULAR: Unremarkable LYMPH NODES: No adenopathy OSSEOUS & SOFT TISSUES: Unremarkable IMPRESSION: 1. No acute abdomen or pelvic pathology following previous cholecystectomy and bilateral tubal ligati on. 2. Recommend elective clinical follow-up for borderline thickened endometrial stripe. Electronically signed by: Eric Haley MD (07/11/2020 6:45 PM) [facility] [place]
[2020-07-11] MEDS ORDERED: KETOROLAC 30 MG/ML VIAL. IVP ONE (19:45)
[2020-07-11 20:17] VITALS: BP 156/91
[2020-07-11] MEDS ORDERED: TRAM50TA PO (20:39)
[2020-07-11] MEDS ORDERED: NAPR-682 PO (20:39)
== END 2020-07-11 21:11 | disposition home or self-care (01) ==
LOC: ER 14:51
DX: R10.84 Generalized abdominal pain (principal); J45.909 Unspecified asthma, uncomplicated; E11.9 Type 2 diabetes mellitus without complications; I10 Essential (primary) hypertension; E05.90 Thyrotoxicosis, unspecified without thyrotoxic crisis or storm; F12.90 Cannabis use, unspecified, uncomplicated; Z90.49 Acquired absence of other specified parts of digestive tract; Z90.89 Acquired absence of other organs; Z98.51 Tubal ligation status; Z98.890 Other specified postprocedural states; Z88.0 Allergy status to penicillin; Z88.1 Allergy status to other antibiotic agents; Z88.5 Allergy status to narcotic agent; Z91.040 Latex allergy status
CPT/HCPCS: 36415; 74177; 80053; 80307; 81001; 82550; 83690; 85025; 96374; 99285; J1885; Q9967

== ENCOUNTER 2021-01-21 23:11 | Emergency (ER) | payer SELFPAY ==
[~2021-01-21] VITALS: Ht 170.2 cm; Wt 95.9 kg
[~2021-01-21 23:11] MED LIST changes: -DOXY100C2 PO; +DOXY100C3 PO; +NAPR-682 PO; +TRAM50TA PO
[2021-01-22 00:42] LABS: INFLUENZA A PATIENT NEGATIVE (NEGATIVE); INFLUENZA B PATIENT NEGATIVE (NEGATIVE)
[2021-01-22] MEDS ORDERED: methylPREDNISolone SOD SUCC PF 125 MG/2 ML VIAL. IM ONE (01:00)
[2021-01-22] MEDS ORDERED: PRED20TA PO (01:06)
--- NOTE | 2021-01-22 01:07 | PHYS DOC ---
Past Medical History Past Medical History: Asthma, Bronchitis, Diabetes-Type II, Hypertension, Hyperthyroid, Sciatica Additional Past Medical Histor: ESOPHAGEAL POLYPS, OVARIAN CYST, STOMACH ULCER,SCIATICA Past Surgical History: Cholecystectomy, Tonsillectomy, Tubal ligation Additional Past Surgical Histo: LEFT ANKLE SX, BILAT ELBOW SX, ADDENOIDECTOMY, CYST REMOVAL BILAT ARMPITS Smoking Status: Current Every Day Smoker Alcohol Use: Occasionally Drug Use: Marijuana General Adult EDM: Chief Complaint: SHORTNESS OF BREATH HPI: HPI: Patient is a 40 year old female presents with a chief complaint of cough and shortness of breath. Patient states symptoms been ongoing for 1 week. Patient cough is associated with sputum production. Patient sputum is clear. She feels that she is having an asthma exacerbation has been using her albuterol inhaler. He days ago patient was evaluated at [facility] and had negative Covid test. Review of Systems: Review of Systems: Review of systems: Constitutional symptoms- No fever, no chills. Eyes- No Discharge, No Visual Loss Respiratory symptoms- Positive shortness of breath, No wheezing, No Dyspnea on Exertion Cardiovascular Systems; Positive chest pain, No Palpitations, No syncope Gastrointestinal symptoms: NO abdominal pain, no nausea, no vomiting or diarrhea. Genitourinary symptoms: No dysuria. Musculoskeletal symptoms: No back pain No extremity pain. NEUROLOGICAL Symptoms: No headache, no generalized weakness; No focal Weakness Skin: No rash. Heart Score: C/O Chest Pain: N/A Risk Factors: Risk Factors: DM, Current or recent (<one month) smoker, HTN, HLP, family history of CAD, obesity. Risk Scores: Score 0 - 3: 2.5% MACE over next 6 weeks - Discharge Home Score 4 - 6: 20.3% MACE over next 6 weeks - Admit for Clinical Observation Score 7 - 10: 72.7% MACE over next 6 weeks - Early Invasive Strategies Current Medications: Current Medications Medications (Trade) Dose Ordered Sig/Dwayne Start Time Stop Time Status Last Admin Dose Admin Methylprednisolone Sodium Succinate (SOLU-Medrol 125MG VIAL) 125 mg 1X ONCE 01/22/21 01:00 01/22/21 01:01 DC Allergies: Allergies: Allergies Coded Allergies Type Severity Reaction Last Updated Verified Cephalexin Monohydrate Allergy Intermediate Itching 04/14/17 Yes amoxicillin Allergy Intermediate 05/21/18 Yes latex Allergy Intermediate Itching 04/14/17 Yes oxycodone Allergy Intermediate 04/17/17 Yes Penicillins Allergy Mild Itching 04/14/17 Yes Physical Exam: PE: Constitutional: Well developed, well nourished, no acute distress, non-toxic appearance. [] HENT: Normocephalic, atraumatic, bilateral external ears normal, oropharynx moist, no oral exudates, nose normal. [] Eyes: PERRLA, EOMI, conjunctiva normal, no discharge. [] Neck: Normal range of motion, no tenderness, supple, no stridor. [] Cardiovascular:Heart rate regular rhythm, no murmur [] Lungs & Thorax: Bilateral breath sounds clear to auscultation [] Abdomen: Bowel sounds normal, soft, no tenderness, no masses, no pulsatile masses. [] Skin: Warm, dry, no erythema, no rash. [] Back: No tenderness, no CVA tenderness. [] Extremities: No tenderness, no cyanosis, no clubbing, ROM intact, no edema. [] Neurologic: Alert and oriented X 3, normal motor function, normal sensory function, no focal deficits noted. [] Psychologic: Affect normal, judgement normal, mood normal. [] Current Patient Data: Labs: Laboratory Tests Test 01/22/21 00:15 Influenza Type A Antigen Negative (NEGATIVE) Influenza Type B Antigen Negative (NEGATIVE) SARS-CoV-2 Antigen (Rapid) Negative (NEGATIVE) Vital Signs: Vital Signs Date Time Temp Pulse Resp B/P (MAP) Pulse Ox O2 Delivery O2 Flow Rate FiO2 01/21/21 23:11 98.7 109 18 135/87 (112) Room Air 98.7 EKG: EKG: [] Radiology/Procedures: Radiology/Procedures: [] Impression: Chest x-ray wet read no acute process Course & Med Decision Making: Course & Med Decision Making Pertinent Labs and Imaging studies reviewed. (See chart for details) [] Patient was evaluated for chief complaint. Work-up consisted of Covid swab influenza swab and chest x-ray. All results negative. Patient was treated with Tylenol. She received a dose of Solu-Medrol. Patient was discharged home. Dragon Disclaimer: Dragkemal Disclaimer: This electronic medical record was generated, in whole or in part, using a voice recognition dictation system. Departure Departure Impression: Primary Impression: Acute bronchitis Disposition: HOME / SELF CARE / HOMELESS Condition: STABLE Referrals: NO PCP (PCP) Patient Instructions: Acute Bronchitis Scripts Prednisone (PREDNISONE) 20 Mg Tablet 1 TAB PO UD for 12 Days, #15 TAB Take 2 tabs days 1,2,3 1.5 tabs days 3,4,5 1 tab days 6,7,8 0.5 tab days 9,10,11 Prov: JODI BRENNAN DO 01/22/21 JODI BRENNAN DO Jan 22, 2021 01:07
[2021-01-22] MEDS ORDERED: ACETAMINOPHEN 325 MG TABLET. PO ONE (01:30)
[2021-01-22 01:46] VITALS: BP 161/95
--- NOTE | 2021-01-22 02:26 | RAD ---
Study: XR CHEST 1V Indication: Shortness of breath. Comparison: 11/22/2018 Findings: The cardiomediastinal silhouette and annette are within normal limits. No localized airspace opacity, pl eural effusion or pneumothorax. Impression: No acute radiographic abnormality of the chest. No relevant change from the November 22, 2018 comparison. Electronically signed by: ROSELINE JAMA MD (01/22/2021 2:23 AM) [facility] [place]
== END 2021-01-22 02:04 | disposition home or self-care (01) ==
LOC: ER 23:11
DX: J20.9 Acute bronchitis, unspecified (principal); J45.909 Unspecified asthma, uncomplicated; E11.9 Type 2 diabetes mellitus without complications; I10 Essential (primary) hypertension; E05.90 Thyrotoxicosis, unspecified without thyrotoxic crisis or storm; F17.200 Nicotine dependence, unspecified, uncomplicated; Z20.822 Contact with and (suspected) exposure to COVID-19; Z88.1 Allergy status to other antibiotic agents; Z91.040 Latex allergy status; Z88.5 Allergy status to narcotic agent; Z88.0 Allergy status to penicillin
CPT/HCPCS: 71045; 87426; 87804; 96372; 99285; J2930

== ENCOUNTER 2021-09-22 01:32 | Emergency (ER) | payer SELFPAY ==
[~2021-09-22] VITALS: Ht 165.1 cm; Wt 77.2 kg
[~2021-09-22 01:32] MED LIST changes: +CLIN-94 PO; -CLIN300C9 PO; +CYCL10TA19 PO; -CYCL10TA2 PO; -LISI-517 PO; -LISI1TAB23 PO; +LISI1TAB35 PO; +LISI5TAB15 PO
[2021-09-22] MEDS ORDERED: IV NORMAL SALINE 1000ML BAG 1,000 ML IV ONE (02:30)
[2021-09-22] MEDS ORDERED: diphenhydrAMINE 50 MG/ML VIAL IVP ONE (02:30)
[2021-09-22] MEDS ORDERED: FAMOTIDINE 20 MG/2 ML VIAL IVP ONE (02:30)
[2021-09-22] MEDS ORDERED: methylPREDNISolone SOD SUCC PF 125 MG/2 ML VIAL. IV ONE (02:30)
[2021-09-22 02:46] LABS: BARBITURATES NEG (NEG); BENZODIAZEPINES POS (NEG); CANNABINOIDS NEG (NEG); COCAINE POS (NEG); METHADONE NEG (NEG); OPIATES NEG (NEG); PHENCYCLIDINE POS (NEG)
[2021-09-22 02:49] LABS: AMPHETAMINE/METHAMPHETAMINE NEG (NEG)
--- NOTE | 2021-09-22 05:29 | PHYS DOC ---
Past Medical History Past Medical History: Asthma, Bronchitis, Diabetes-Type II, Hypertension, Hyperthyroid, Sciatica Additional Past Medical Histor: ESOPHAGEAL POLYPS, OVARIAN CYST, STOMACH ULCER,SCIATICA (MANDO PACHECO MD) Past Surgical History: No Surgical History Additional Past Surgical Histo: LEFT ANKLE SX, BILAT ELBOW SX, ADDENOIDECTOMY, CYST REMOVAL BILAT ARMPITS (MANDO PACHECO MD) Smoking Status: Current Every Day Smoker Alcohol Use: Occasionally Drug Use: Marijuana (MANDO PACHECO MD) Adult General Chief Complaint Chief Complaint: ALLERGIC REACTION HPI HPI The patient is a 41-year-old female with a history of polysubstance abuse who presents via EMS for evaluation of what she describes as an allergic reaction. States she ate some shrimp a number of hours ago and feels she is having an allergic reaction. When asked what symptoms she is having she states she feels breathless. She is objectively somewhat agitated and disorganized and is hyperventilating but does not appear short of breath and oxygen saturation is 100% on room air. She appears under the influence of psychostimulants. Difficult to get a clear linear story from the patient as to exactly what happened earlier tonight. Eventually, she admits to smoking PCP prior to calling the ambulance "to try to stay awake." (MANDO PACHECO MD) Review of Systems Review of Systems A 12 point review of systems was completed and was negative except where noted in HPI above. (MANDO PACHECO MD) Current Medications Current Medications Current Medications Medications (Trade) Dose Ordered Sig/Dwayne Start Time Stop Time Status Last Admin Dose Admin Diphenhydramine HCl (Benadryl) 25 mg 1X ONCE 09/22/21 02:30 09/22/21 02:31 DC 09/22/21 02:42 25 MG Famotidine (Pepcid Vial) 40 mg 1X ONCE 09/22/21 02:30 09/22/21 02:31 DC 09/22/21 02:42 40 MG Methylprednisolone Sodium Succinate (SOLU-Medrol 125MG VIAL) 125 mg 1X ONCE 09/22/21 02:30 09/22/21 02:31 DC 09/22/21 02:42 125 MG Sodium Chloride 1,000 ml @ 1,000 mls/hr 1X ONCE 09/22/21 02:30 09/22/21 03:29 DC 09/22/21 02:30 1,000 MLS/HR (VIDHYA ROWLAND DO) Allergies Allergies Allergies Coded Allergies Type Severity Reaction Last Updated Verified Cephalexin Monohydrate Allergy Intermediate Itching 09/22/21 Yes Penicillins Allergy Intermediate Itching 09/22/21 Yes amoxicillin Allergy Intermediate 09/22/21 Yes latex Allergy Intermediate Itching 09/22/21 Yes oxycodone Allergy Intermediate 09/22/21 Yes (VIDHYA ROWLAND DO) Physical Exam Physical Exam 41-year-old female appearing nontoxic and in no acute distress. She appears intoxicated and somewhat anxious. Head is normocephalic and atraumatic. Neck is supple and nontender. Oropharynx is moist. No posterior oropharyngeal erythema, tonsillar exudate or swelling or uvular deviation. Patient is speaking comfortably in full sentences and normal tone of voice and tolerating secretions normally. Lungs are clear to auscultation at all stations. There is a normal S1 and S2 without rubs or gallops and capillary refill is appropriate, less than 2 seconds globally. Abdomen is soft, nontender and nondistended. Skin is warm and dry without cyanosis, clubbing or edema. Psychiatrically, the patient demonstrates some loose associations, flight of ideas and bizarre thought content. (MANDO PACHECO MD) Current Patient Data Vital Signs Vital Signs Date Time Temp Pulse Resp B/P (MAP) Pulse Ox O2 Delivery O2 Flow Rate FiO2 09/22/21 07:35 96 24 176/109 (131) 97 Room Air 09/22/21 03:49 98.8 98.8 (VIDHYA ROWLAND DO) Lab Values Laboratory Tests Test 09/22/21 02:32 09/22/21 02:34 09/22/21 07:04 09/22/21 07:15 Urine Opiates Screen Neg (NEG) Urine Methadone Screen Neg (NEG) Urine Barbiturates Neg (NEG) Urine Phencyclidine Screen Pos (NEG) Urine Amphetamine/Methamphetamine Neg (NEG) Urine Benzodiazepines Screen Pos (NEG) Urine Cocaine Screen Pos (NEG) Urine Cannabinoids Screen Neg (NEG) Urine Ethyl Alcohol Neg (NEG) POC Urine HCG, Qualitative Hcg negative (Negative) Glucose (Fingerstick) 211 mg/dL (70-99) H White Blood Count 17.2 x10^3/uL (4.0-11.0) H Red Blood Count 4.95 x10^6/uL (3.50-5.40) Hemoglobin 13.6 g/dL (12.0-15.5) Hematocrit 42.4 % (36.0-47.0) Mean Corpuscular Volume 86 fL (79-100) Mean Corpuscular Hemoglobin 27 pg (25-35) Mean Corpuscular Hemoglobin Concent 32 g/dL (31-37) Red Cell Distribution Width 14.5 % (11.5-14.5) Platelet Count 213 x10^3/uL (140-400) Neutrophils (%) (Auto) 89 % (31-73) H Lymphocytes (%) (Auto) 9 % (24-48) L Monocytes (%) (Auto) 1 % (0-9) Eosinophils (%) (Auto) 0 % (0-3) Basophils (%) (Auto) 1 % (0-3) Neutrophils # (Auto) 15.4 x10^3/uL (1.8-7.7) H Lymphocytes # (Auto) 1.6 x10^3/uL (1.0-4.8) Monocytes # (Auto) 0.1 x10^3/uL (0.0-1.1) Eosinophils # (Auto) 0.0 x10^3/uL (0.0-0.7) Basophils # (Auto) 0.1 x10^3/uL (0.0-0.2) Segmented Neutrophils % 86 % (35-66) H Band Neutrophils % 6 % (0-9) Lymphocytes % 7 % (24-48) L Monocytes % 1 % (0-10) Platelet Estimate Adequate (ADEQUATE) Sodium Level 134 mmol/L (136-145) L Potassium Level 4.4 mmol/L (3.5-5.1) Chloride Level 101 mmol/L (98-107) Carbon Dioxide Level 25 mmol/L (21-32) Anion Gap 8 (6-14) Blood Urea Nitrogen 21 mg/dL (7-20) H Creatinine 0.7 mg/dL (0.6-1.0) Estimated GFR (Cockcroft-Gault) 112.7 BUN/Creatinine Ratio 30 (6-20) H Glucose Level 216 mg/dL (70-99) H Calcium Level 9.3 mg/dL (8.5-10.1) Total Bilirubin 0.3 mg/dL (0.2-1.0) Aspartate Amino Transferase (AST) 14 U/L (15-37) L Alanine Aminotransferase (ALT) 23 U/L (14-59) Alkaline Phosphatase 75 U/L (46-116) Total Protein 7.6 g/dL (6.4-8.2) Albumin 4.0 g/dL (3.4-5.0) Albumin/Globulin Ratio 1.1 (1.0-1.7) Salicylates Level 6.2 mg/dL (2.8-20.0) Salicylate Last Dose Date Unknown Salicylate Last Dose Time Unknown Acetaminophen Level < 2 mcg/ml (10-30) L Acetaminophen Last Dose Date Unknown Acetaminophen Last Dose Time Unknown Ethyl Alcohol Level < 10 mg/dL (0-10) Laboratory Tests 09/22/21 07:15 Laboratory Tests 09/22/21 07:15 (VIDHYA ROWLAND DO) EKG EKG [] (MANDO PACHECO MD) Radiology/Procedures Radiology/Procedures [] (MANDO PACHECO MD) Course & Med Decision Making Course & Med Decision Making Urine drug screen positive for PCP, cocaine and benzodiazepines. testing negative. Multiple nurses have attempted to draw blood from the patient without success. She is sleeping very comfortably now after being successfully redirected verbally a number of times by me and by nursing staff. Did not require any medications for agitation. We will allow her to rest and sober and will plan to reassess her presenting complaints once she is clinically sober to determine if any further evaluation is needed. If she is asymptomatic when she awakens, lab work may not need to be obtained. 0600: Transition of care at this time to Dr. Rowland pending clinical sobriety and reevaluation for disposition. (MANDO PACHECO MD) Course & Med Decision Making Patient has back to her baseline. Patient had requested opioid pain medication which I have declined. I explained to the patient that she does have a pain management physician. Patient also initially presented with polysubstance abuse. Patient's vital signs are stable. Patient is airways patent. Patient will be discharged home precautions were discussed (VIDHYA ROWLAND DO) Dragon Disclaimer Dragon Disclaimer This electronic medical record was generated, in whole or in part, using a voice recognition dictation system. (MANDO PACHECO MD) Departure Departure Impression: Primary Impression: Phencyclidine abuse Condition: STABLE Referrals: NO PCP (PCP) MANDO PACHECO MD Sep 22, 2021 05:28 VIDHYA ROWLAND DO Sep 22, 2021 08:50
[2021-09-22 07:44] LABS: BASO # 0.1 x10^3/uL (0.0-0.2); BASO % 1 % (0-3); EOS % 0 % (0-3); HEMATOCRIT 42.4 % (36.0-47.0); HEMOGLOBIN 13.6 g/dL (12.0-15.5); LYMPH # 1.6 x10^3/uL (1.0-4.8); LYMPH % 9 % (24-48); MEAN CORPUSCULAR HEMOGLOBIN 27 pg (25-35); MEAN CORPUSCULAR HGB CONC 32 g/dL (31-37); MEAN CORPUSCULAR VOLUME 86 fL (79-100); MONO # 0.1 x10^3/uL (0.0-1.1); MONO % 1 % (0-9); NEUT # 15.4 x10^3/uL (1.8-7.7); NEUT % 89 % (31-73); PLATELET COUNT 213 x10^3/uL (140-400); RED BLOOD COUNT 4.95 x10^6/uL (3.50-5.40); RED CELL DISTRIBUTION WIDTH 14.5 % (11.5-14.5); WHITE BLOOD COUNT 17.2 x10^3/uL (4.0-11.0)
[2021-09-22 07:50] LABS: CALCIUM 9.3 mg/dL (8.5-10.1); CREATININE 0.7 mg/dL (0.6-1.0); GFR 112.7; POTASSIUM 4.4 mmol/L (3.5-5.1)
[2021-09-22 07:54] LABS: SALIC 6.2 mg/dL (2.8-20.0)
[2021-09-22 07:55] LABS: ACETAMIN < 2 mcg/ml (10-30); ALBUMIN/GLOBULIN RATIO 1.1 (1.0-1.7); ETHANOL < 10 mg/dL (0-10); TOTAL BILIRUBIN 0.3 mg/dL (0.2-1.0); TOTAL PROTEIN 7.6 g/dL (6.4-8.2)
[2021-09-22 08:37] LABS: % BANDS 6 % (0-9); % LYMPHS 7 % (24-48); % MONOS 1 % (0-10); % SEGS 86 % (35-66); PLT ESTIMATE ADEQUATE (ADEQUATE)
[2021-09-22 08:58] VITALS: BP 150/80
== END 2021-09-22 09:12 | disposition home or self-care (01) ==
LOC: ER 01:32
DX: F16.10 Hallucinogen abuse, uncomplicated (principal); T78.40XA Allergy, unspecified, initial encounter; J45.909 Unspecified asthma, uncomplicated; E11.9 Type 2 diabetes mellitus without complications; I10 Essential (primary) hypertension; F17.200 Nicotine dependence, unspecified, uncomplicated; Z88.1 Allergy status to other antibiotic agents; Z88.0 Allergy status to penicillin; Z91.040 Latex allergy status; Z88.5 Allergy status to narcotic agent
CPT/HCPCS: 36415; 80053; 80307; 80329; 81025; 82962; 85007; 85025; 96361; 96374; 96375; 99285; G0480; J1200; J2930; J3490; J7030